=== PATIENT | female | born 1940 | race Caucasian/White ===

== ENCOUNTER → 2016-09-13 | Outpatient (CLI) | payer OTHER, BC ==
[~2016-09-13] MED LIST: ACID CONTROL20 MG PO; AMOXICILLIN 50500 M1 PO; ASPIR 8181 MG PO; ASPIRIN EC81 M1 PO; CORVITE FE TAB1 EACH PO; DIOVAN HCT 1601 EACH PO; FERROUS SULFAT140 MG PO; GLUCOPHAGE500 MG PO; IRON325 PO; JANUVIA100 MG PO; LANTUS SOL100 UNIT/1 SQ; LANTUS SUBQ; LASIX 20 MG TAB20 MG PO; LASIX 40 MG TAB40 M1 PO; LEVAQUIN 500 M500 M2 PO; LOSARTAN-HCTZ1 EAC2 PO; MECLIZINE HCL12.5 MG PO; MEDROLDOSEPACK PO; MIRALAX255 GM PO; NORCO 5-325 TA1 EACH PO; OMEPRAZOLE 20 M20 M1 PO; OMEPRAZOLE20 MG PO; PRILOSEC 20 MG20 MG PO; PROTONIX40 M1 PO; PROTONIX40 M2 PO; SLOW FE 160MG160 MG PO; SLOW RELEASE I140 MG PO; VENTOLIN HFA INH8 GM IH; VYTORIN 10-201 EACH PO; ZOCOR 10 MG TAB10 MG PO; ZOFRAN ODT4 MG PO
== END | disposition home or self-care (01) ==
LOC: GI 06:53
DX: D50.9 Iron deficiency anemia, unspecified (principal); Z86.010 Personal history of colon polyps

== ENCOUNTER 2018-01-23 08:50 | Emergency (ER) | payer OTHER, BC ==
[~2018-01-23] VITALS: Ht 160 cm; Wt 90.3 kg
[2018-01-23 09:25] LABS: ABSOLUTE NEUTROPHILS 3.5 thou/uL (1.4-8.2); HEMOGLOBIN 11.1 gm/dL (12.0-15.0); POLYS 60.3 % (36.0-66.0)
[2018-01-23 09:28] LABS: CALCIUM 10.4 mg/dL (8.5-10.1); CREATININE 1.1 mg/dL (0.6-1.0)
[2018-01-23 09:29] LABS: WBC 5.9 thou/uL (4.0-11.0)
[2018-01-23 09:30] LABS: EOSINOPHILS 4.6 % (0.0-3.0); HEMATOCRIT 30.8 % (37.0-47.0); LYMPHOCYTES 24.6 % (24.0-44.0); MCV 86.3 fL (80.0-100.0); MONOCYTES 9.5 % (1.0-8.0); PLATELET COUNT 128 thou/uL (150-400); RBC 3.56 mil/uL (4.20-5.00); RDW 13.8 % (10.5-14.5)
[2018-01-23 09:31] LABS: POTASSIUM 4.1 mmol/L (3.5-5.1)
[2018-01-23 12:39] VITALS: BP 138/72
== END 2018-01-23 11:10 | disposition home or self-care (01) ==
LOC: ER 08:50
PROVIDERS: Emergency Medicine
DX: K62.89 Other specified diseases of anus and rectum (principal); I10 Essential (primary) hypertension; E11.9 Type 2 diabetes mellitus without complications; J44.9 Chronic obstructive pulmonary disease, unspecified; G47.30 Sleep apnea, unspecified; Z90.49 Acquired absence of other specified parts of digestive tract; Z90.710 Acquired absence of both cervix and uterus; Z87.891 Personal history of nicotine dependence; Z88.1 Allergy status to other antibiotic agents

== ENCOUNTER → 2018-03-31 | Outpatient (CLI) | payer OTHER, BC ==
[~2018-03-31] VITALS: Ht 162.6 cm; Wt 91.6 kg
[~2018-03-31] MED LIST changes: +CRESTOR20 MG PO; +VENTOLIN HFA 1818 GM INH
--- NOTE | ~2018-03-31 | HPC ---
[facility] [address] [place] [address] PAIN MANAGEMENT CONSULTATION Name: XOCHITL BETH Room #: REG [facility]..#: [id number] Admission: 03/31/18 Attend Phys: Rei Paz DO Discharge: Date of : 38 Report #: [id number] THIS REPORT FOR: //name// CC: Rei Burnett MD DATE OF SERVICE: 03/31/2018 REFERRING PHYSICIAN: Jamison Burnett MD CHIEF COMPLAINT: Low back pain, bilateral lower extremity pain and paresthesias. HISTORY OF PRESENT ILLNESS: As you know, the patient is a very pleasant 77-year-old female, who reports acute onset of low back pain, bilateral lower extremity pain that began in 10/2017 after doing some yard work. She indicates pain has become intense enough that she has been unable to go about her activities of daily living. She describes the pain as aching, constant and gnawing with intermittent numbness and tingling. She states pain is exacerbated with standing, walking, improves with lying down. She is placing pain score today 9/10. The patient denies any other injury or trauma that may have led to symptom development. She is not on any blood thinners. She has been referred back to our clinic to trial epidural injection under fluoroscopic guidance. ALLERGIES: SULFA. CURRENT MEDICATIONS: Albuterol 2 puffs q.4 hours p.r.n., ferrous sulfate 325 mg per day, lovastatin 20 mg per day, furosemide 20 mg per day, losartan/hydrochlorothiazide 100/12.5 mg once a day, insulin 60 units subQ at bedtime, metformin 500 mg twice a day. SOCIAL HISTORY: The patient denies tobacco, alcohol, IV or illicit drug use. She is retired, retired years ago. She is accompanied by her son, who is present in room today. IMAGING: No new imaging available. PQRS: The patient has known osteoarthritis of the bilateral shoulders, bilateral hips, bilateral knees. She is not treated for rheumatoid arthritis. She has pain intensity today, 02/27. She is not a fall risk, has not had a fall in the last 3 months. She is not on blood thinner. She is treated for hypertension. She is not on opioids, has a low opioid addiction potential. Functional assessment pain impact tool shows [id number] interference at 46/70 for daily activities. [address] [address] PAIN MANAGEMENT CONSULTATION Name: XOCHITL BETH Room #: REG CLI [facility]#: [id number] Admission: 03/31/18 Attend Phys: Rei Paz DO Discharge: Date of : 38 Report #: [id number] PHYSICAL EXAMINATION: VITAL SIGNS: Blood pressure 140/64, pulse 68, respiratory rate 16 and unlabored. The patient is 98% on room air. Height 5 feet 4 inches tall, weight 202 pounds, BMI calculated 34.7. GENERAL: Well-developed, well-nourished, well-hydrated 77-year-old female appearing stated age, placing current pain score at 9/10. HEENT: Normocephalic, atraumatic. Pupils equal, round, reactive to light. Extraocular muscles are intact. Sclerae nonicteric without injection. NEUROLOGIC: Cranial nerves 2-12 grossly intact. Speech is fluent. The patient deemed a good historian. LUNGS: Clear; no wheeze, rhonchi or rales. CARDIOVASCULAR: Regular. No appreciable gallop, no rub. ABDOMEN: Soft, obese, normoactive bowel sounds. EXTREMITIES: Show no clubbing, no cyanosis, no edema. MUSCULOSKELETAL: Lower extremity strength appears symmetrical 5/5. Slight giveaway strength noted on the right when compared to left. Pain is generated with hip flexion, knee extension on the right. Seated straight leg raising negative. Supine straight leg raising positive. Krysten's test negative. Modified Gaenslen's positive for axial low back pain. ASSESSMENT: 1. Lumbar radiculopathy. 2. Lumbosacral spondylosis with radiculopathy. 3. Lumbar degeneration. 4. Chronic intractable pain. PLAN: 1. The patient, based on today's physical exam, history she provides and the description she uses in regards to pain as well as the distribution of symptoms would appear to be suffering from a lumbar radiculopathy given the bilateral nature of her symptoms, likely central canal stenosis. The patient indicates she has been dealing with pain since 10/2017 after an injury she sustained while doing yard work. She has been referred to our service to discuss interventional treatments. We discussed with the patient all options for suspected lumbar radiculopathy secondary to spinal stenosis. Following was discussed with the patient today. We discussed physical therapy, stretching exercise, core strengthening and a concerted effort at weight loss. We discussed medication management with addition of a neuropathic pain medication and a consistent nonsteroidal anti-inflammatory. We discussed lumbar epidural injections for which the patient was referred to our clinic, spinal cord stimulator therapy and ultimately surgical options. After reviewing risks and benefits of all proposed treatment options, the patient chose to begin with an epidural injection under fluoroscopic guidance. [address] [address] PAIN MANAGEMENT CONSULTATION Name: XOCHITL BETH Room #: REG [facility] [id number] Admission: 03/31/18 Attend Phys: Rei Paz DO Discharge: Date of : 38 Report #: [id number] The patient was advised the risks and benefits of a lumbar epidural injection. These risks include but are not necessarily limited to bleeding, bruising, infection, worsening pain, no relief of pain, also risk of temporary or permanent muscle weakness, temporary or permanent nerve damage, possible paralysis and . The patient states she understood and wished to proceed. 2. No medication changes were made at today's visit. The patient to continue current medical therapy as previously prescribed. 3. We will see the patient back in followup visit on an as-needed basis for the next in the series of lumbar epidural injections. PROCEDURE NOTE DESCRIPTION OF PROCEDURE: L5-S1 right paramedian epidural steroid injection under fluoroscopic guidance. This is the first procedure of the first series that the patient is undergoing. After obtaining written consent, the patient was taken back to the fluoroscopy suite, placed in a prone position with pillow under the abdomen to decrease lumbar lordosis. The skin overlying the lumbosacral area was then prepped and draped in aseptic fashion. The L5-S1 vertebral interspace was then identified by AP fluoroscopy. The skin and subcutaneous tissue overlying the target site of injection was anesthetized with 3 mL 1% lidocaine. A 20 gauge 3.5 inch Tuohy needle was then advanced under fluoroscopic guidance towards the epidural space using a right paramedian approach. The epidural space was identified using loss of resistance to air technique. After negative aspiration for heme or cerebrospinal fluid, a total of 1 mL of Omnipaque was injected. A lumbar epidurogram was confirmed using both AP and lateral fluoroscopy. After negative aspiration for heme or cerebrospinal fluid, 5 mL of a solution containing 2 mL 40 mg per mL, 80 mg total triamcinolone, 3 mL of lidocaine 1% was injected in increments. Contrast spread was noted posterior epidural space. The needle was then retracted approximately half way and needle tract flushed with 1 mL of 1% lidocaine. Needle was then removed. There were no apparent sensory or motor deficits in the lower extremity following the procedure. A sterile bandage was placed over the injection site. The heart rate, pulse, oximetry and blood pressure were continuously monitored after the procedure. There were no apparent complications. The patient tolerated the procedure well and was carefully escorted to the recovery room in stable condition. There were no apparent complications. After meeting discharge criteria, the patient was then discharged home. <ELECTRONICALLY SIGNED> By: Rei Paz DO 04/05/18 [id number] Rei Paz DO /nt
[2018-03-31 11:41] VITALS: BP 140/64
== END | disposition home or self-care (01) ==
LOC: PAIN 08:08
DX: M51.16 Intervertebral disc disorders with radiculopathy, lumbar region (principal); M47.27 Other spondylosis with radiculopathy, lumbosacral region; G89.29 Other chronic pain; M19.012 Primary osteoarthritis, left shoulder; M19.011 Primary osteoarthritis, right shoulder; M16.0 Bilateral primary osteoarthritis of hip; M17.0 Bilateral primary osteoarthritis of knee; I10 Essential (primary) hypertension; E11.9 Type 2 diabetes mellitus without complications; J44.9 Chronic obstructive pulmonary disease, unspecified; Z88.2 Allergy status to sulfonamides; Z79.899 Other long term (current) drug therapy; Z79.4 Long term (current) use of insulin; Z79.84 Long term (current) use of oral hypoglycemic drugs; Z90.710 Acquired absence of both cervix and uterus; Z98.890 Other specified postprocedural states; Z87.891 Personal history of nicotine dependence

== ENCOUNTER → 2018-05-17 | Outpatient (CLI) | payer OTHER, BC | LOC: MRI 11:45 | DX: M47.27 Other spondylosis with radiculopathy, lumbosacral region (principal); M43.16 Spondylolisthesis, lumbar region; M51.16 Intervertebral disc disorders with radiculopathy, lumbar region ==

== ENCOUNTER → 2018-08-23 | Outpatient (CLI) | payer MEDICARE ==
[~2018-08-23] VITALS: Ht 160 cm; Wt 93.9 kg
[2018-08-23 09:16] VITALS: BP 180/73
--- NOTE | 2018-08-23 09:24 | NUR ---
Pain Clinic Assessment: 1. History of Osteoarthritis: yes History of Rheumatoid Arthritis: Not Applicable 2. Height: 5 ft. 3 in. 160.0 cm. Weight: 207.0 lb. oz. 93.895 kg. Patient's BMI: 36.7 3. Vital Signs: BP: 180/73 Pulse: 82 Resp: 18 Temp: 02 Sat: 98 ECG Mon: 4. Pain Intensity: 9-10 5. Fall Risk: Dizziness: Y Needs help standing or walking: Y Fallen in the last 3 months: N Fall risk comments: USES CANE 6. Patient on Blood Thinner: None 7. History of Hypertension: Y 8. Opioid Therapy greater than 6 weeks: N Opiate Contract Signed: 9. Risk Assessment Tool Provided: low-0 10. Functional Assessment Tool: 11. Recreational Drug Use: Never Drug Type: Tobacco Use: Former Smoker Tobacco Type: Amount or Packs/day: How Many Years: Alcohol Use: Yes Frequency: Weekly Quant: WINE
--- NOTE | 2018-08-29 07:52 | HPC ---
[facility] [address] [place] [address] PAIN MANAGEMENT CONSULTATION Name: [facility]ITL BETH [id number] Admission: 08/23/18 ������������������ Attend Phys: Rei Paz DO Discharge: ������������������ Date of : 38 Report #: [id number] THIS REPORT FOR: //name// CC: Rei Burnett DATE OF SERVICE: 08/23/2018 CHIEF COMPLAINT: Low back pain, bilateral lower extremity pain and paresthesias. HISTORY OF PRESENT ILLNESS: As you know, the patient is a 77-year-old female who returns today in followup visit requesting to undergo next in the series of lumbar epidural injections under fluoroscopic guidance. She reports excellent benefit with previous epidural injection noting improvement of her symptoms of greater than 50-60%. She returns today in followup visit with pain level of 9-10/10 involving low back, bilateral buttock all the way down the legs to the feet. She denies new injury, new trauma or any changes in medical history since her last visit. She returns today to undergo next in the series of lumbar epidural injections under fluoroscopic guidance. This will be the second in this series. ALLERGIES: SULFA. CURRENT MEDICATIONS: Furosemide, albuterol, ferrous sulfate, lovastatin, losartan, hydrochlorothiazide, insulin and metformin. SOCIAL HISTORY: The patient denies tobacco, alcohol, IV or illicit drug use. She is retired, retired years ago. She is unaccompanied today. IMAGING: There is no new imaging available. PQRS: The patient has osteoarthritic changes of the bilateral shoulders, bilateral hips, bilateral knees and the lumbar spine. She is not treated for rheumatoid arthritis. She is placing pain intensity at 9-10/10. She is a fall risk, but has not had a fall in the last 3 months. She does use a cane for ambulation. She is not on blood thinners. She is treated for hypertension. She is not on chronic opioids. She has a low opioid addiction potential and pain impact score of 46/70, severe interference of daily activities secondary to pain. PHYSICAL EXAMINATION: VITAL SIGNS: Blood pressure 180/73, pulse is 82, respiratory rate 18 and unlabored. The patient is 98% on room air. Height 5 feet 3 inches tall, weight 207 pounds, BMI calculated 36.7. GENERAL: Well-developed, well-nourished, well-hydrated, morbidly obese [address] [address] PAIN MANAGEMENT CONSULTATION Name: XOCHITL BETH Room #: REG CLI [facility]#: [id number] Admission: 08/23/18 ������������������ Attend Phys: Rei Paz DO Discharge: ������������������ Date of : 38 Report #: [id number] 77-year-old female appearing stated age, placing current pain score 9-10/10. HEENT: Normocephalic, atraumatic. Pupils are equal, round and reactive to light. EXTREMITIES: Show no clubbing, no cyanosis and no edema. MUSCULOSKELETAL: Lower extremity strength once again symmetrical 5/5. No giveaway strength noted today. Pain is elicited with hip flexion, knee extension on the right when compared to left. Seated straight leg raising is negative. Supine straight leg raising positive on the right. Krysten's test negative. Modified Gaenslen's positive for axial low back pain. Gait appears antalgic favoring right lower extremity over left. ASSESSMENT: 1. Symptomatic lumbar radiculopathy. 2. Lumbosacral spondylosis with radiculopathy. 3. Lumbar degeneration. 4. Chronic intractable pain. PLAN: 1. The patient returns today in followup visit having noted greater than 50-60% improvement in overall pain with the previous epidural injection provided in March. She returns today in followup visit indicating her pain has begun to return to a level of intolerability and wishing to undergo next in the series of lumbar epidural injections. The patient has been advised of the risks and benefits of this procedure, states understood and wished to proceed. 2. No medication changes made at today's visit. The patient will continue current medical therapy as previously prescribed. 3. We will see the patient back in followup visit on an as needed basis for possible next in the series of lumbar epidural injections. PROCEDURE NOTE DESCRIPTION OF PROCEDURE: L5-S1 parasagittal epidural steroid injection under fluoroscopic guidance. This is the second procedure of the first series that the patient is undergoing. After obtaining written consent, the patient was taken back to the fluoroscopy suite, placed in a prone position with pillow under the abdomen to decrease lumbar lordosis. The skin overlying the lumbosacral area was then prepped and draped in aseptic fashion. The L5-S1 vertebral interspace was then identified by AP fluoroscopy. The skin and subcutaneous tissue overlying the target site of injection was anesthetized with 3 mL 1% lidocaine. A 20 gauge 3-1/2 inch Tuohy needle was then advanced under fluoroscopic guidance towards the epidural space using a parasagittal approach. The epidural space was identified using loss of resistance to air technique. After negative [address] [address] PAIN MANAGEMENT CONSULTATION Name: XOCHITL BETH Room #: REG [facility]#: [id number] Admission: 08/23/18 ������������������ Attend Phys: Rei Paz DO Discharge: ������������������ Date of : 38 Report #: [id number] aspiration for heme or cerebrospinal fluid, a total of 1 mL of Omnipaque was injected. A lumbar epidurogram was confirmed using both AP and lateral fluoroscopy. After negative aspiration for heme or cerebrospinal fluid, 5 mL of a solution containing 2 mL of 40 mg per mL, 80 mg total triamcinolone, 3 mL of lidocaine 1% was injected in increments. Contrast spread was noted posterior epidural space. The needle was then retracted approximately half way and needle tract flushed with 1 mL of 1% lidocaine. Needle was then removed. There were no apparent sensory or motor deficits in the lower extremity following the procedure. A sterile bandage was placed over the injection site. The heart rate, pulse, oximetry and blood pressure were continuously monitored after the procedure. There were no apparent complications. The patient tolerated the procedure well and was carefully escorted to the recovery room in stable condition. There were no apparent complications. After meeting discharge criteria, the patient was then discharged home. ��������������������������������������������� <ELECTRONICALLY SIGNED> ���������������������������������������� By: Rei Paz DO ��������������������������������������������� 08/29/18 0752 [id number] Rei Paz DO /nt
== END | disposition home or self-care (01) ==
LOC: PAIN 06:52
DX: M51.16 Intervertebral disc disorders with radiculopathy, lumbar region (principal); M47.26 Other spondylosis with radiculopathy, lumbar region; G89.29 Other chronic pain; M19.90 Unspecified osteoarthritis, unspecified site; I10 Essential (primary) hypertension; E66.01 Morbid (severe) obesity due to excess calories; Z88.2 Allergy status to sulfonamides; Z79.899 Other long term (current) drug therapy; Z79.4 Long term (current) use of insulin; Z79.84 Long term (current) use of oral hypoglycemic drugs; Z68.36 Body mass index [BMI] 36.0-36.9, adult; Z87.891 Personal history of nicotine dependence

== ENCOUNTER → 2018-10-25 | Outpatient (CLI) | payer MEDICARE ==
[~2018-10-25] VITALS: Ht 160 cm; Wt 91.9 kg
[2018-10-25 11:12] VITALS: BP 150/67
--- NOTE | 2018-10-25 11:28 | NUR ---
Pain Clinic Assessment: 1. History of Osteoarthritis: yes History of Rheumatoid Arthritis: Not Applicable 2. Height: 5 ft. 3 in. 160.0 cm. Weight: 202.6 lb. oz. 91.899 kg. Patient's BMI: 35.9 3. Vital Signs: BP: 150/67 Pulse: 86 Resp: 20 Temp: 02 Sat: 98 ECG Mon: 4. Pain Intensity: 5 5. Fall Risk: Dizziness: Y Needs help standing or walking: Y Fallen in the last 3 months: N Fall risk comments: USES CANE 6. Patient on Blood Thinner: None 7. History of Hypertension: Y 8. Opioid Therapy greater than 6 weeks: N Opiate Contract Signed: 9. Risk Assessment Tool Provided: low-0 10. Functional Assessment Tool: 11. Recreational Drug Use: Never Drug Type: Tobacco Use: Former Smoker Tobacco Type: Amount or Packs/day: How Many Years: Alcohol Use: No Frequency: Quant:
--- NOTE | 2018-10-31 07:41 | HPC ---
[facility] [address] PAIN MANAGEMENT CONSULTATION Name: XOCHITL BETH Room #: REG [facility] Justin.#: [id number] Admission: 10/25/18 ������������������ Attend Phys: Rei Paz DO Discharge: ������������������ Date of : 38 Report #: [id number] THIS REPORT FOR: //name// CC: Rei Burnett MD DATE OF SERVICE: 10/25/2018 REFERRING PHYSICIAN: Jamison Burnett M.D. CHIEF COMPLAINT: Low back pain, bilateral lower extremity pain and bilateral weakness. HISTORY OF PRESENT ILLNESS: As you know, the patient is a 77-year-old female who returns today in followup visit requesting to undergo next in the series of lumbar epidural injections to address lumbar radicular symptoms that are presenting in a bilateral nature secondary to the severe spinal stenosis. She has at the L4-L5 level. She is also complaining of bilateral weakness and is showing some changes in her gait today and some muscle weakness, but no baldo atrophy of the lower extremities. She indicates good efficacy with previous epidural injection alleviating most of the pain she experiences at night, but it did not have much effect on the weakness. She returns to discuss options for treatment. She denies new injury, new trauma or any changes in medical history since our last visit. ALLERGIES: SULFA. CURRENT MEDICATIONS: Furosemide, albuterol, ferrous sulfate, lovastatin, losartan, hydrochlorothiazide, insulin and metformin. SOCIAL HISTORY: The patient denies tobacco, alcohol or IV or illicit drug use. She is retired, retired years ago. She is accompanied by her daughter and son who are here in the clinic with her today. IMAGING DATA: No new imaging available. PQRS: The patient has no known osteoarthritic change of the bilateral shoulders, bilateral hips, bilateral knees and lumbar spine. She is not treated for rheumatoid arthritis. She is placing pain intensity of 5/10. She is a fall risk, but has not had a fall in last 3 months. She is now utilizing a quad cane for ambulation. She is not on blood thinners. She is treated for hypertension. She is not on any chronic opioids, has a low opioid addiction potential. She is placing pain impact score 46/70, [id number] interference of daily activities secondary to pain. [address] [address] PAIN MANAGEMENT CONSULTATION Name: XOCHITL BETH [facility] [id number] Admission: 10/25/18 ������������������ Attend Phys: Rei Paz DO Discharge: ������������������ Date of : 38 Report #: [id number] PHYSICAL EXAMINATION: VITAL SIGNS: Blood pressure 150/67, pulse 86 and respiratory rate 20 and unlabored. The patient is 98% on room air. Height 5 feet 3 inches tall, weight 202.6 pounds, BMI calculated 35.9. GENERAL: Well-developed, well-nourished, well-hydrated exogenously obese 77-year-old female appearing stated age. She is placing current pain score at 5/10. HEENT: Normocephalic and atraumatic. Pupils equal, round and reactive to light. Extraocular muscles are intact. Sclerae nonicteric without injection. NEUROLOGICAL: Cranial nerves 2 through 12 grossly intact. Speech fluent. The patient deemed a good historian. EXTREMITIES: Show no clubbing, no cyanosis and no edema. MUSCULOSKELETAL: Lower extremity strength is asymmetrical at this visit, strength on the right 5/5 and strength in the left with hip flexion, knee extension is 4/5. There is no giveaway strength noted with pain, though pain is elicited with these maneuvers. Seated straight leg raising is positive on the left. Supine straight leg raising positive. Krysten's test is negative. Modified Gaenslen's positive for axial low back pain. Ankle clonus negative. Babinski is negative. Gait is antalgic favoring what appears to be right lower extremity over the left. The patient has difficulty rising from a seated position due to weakness. ASSESSMENT: 1. Symptomatic lumbar radiculopathy. 2. Severe and progressively worsening spinal stenosis of the lumbar spine. 3. Lumbosacral spondylosis with radiculopathy. 4. Displacement of lumbar intervertebral disk with radiculopathy. 5. Lumbar degeneration. 6. Chronic intractable pain. 7. Bilateral lower extremity weakness. PLAN: 1. The patient returns today in followup visit where we have discussed at length her ongoing concerns of bilateral weakness. As you are aware, there is tight central canal stenosis at the L4-L5 level, which is the source of the patient's pain and her bilateral lower extremity weakness. It is noted today that the weakness on the left has progressed. There is no definitive atrophy of the muscular groups of the lower extremity on the left when compared to right. The patient does have some balance issues and her gait is a somewhat antalgic. We have discussed with the patient our concerns of the weakness that she is experiencing. Certainly from a pain standpoint, the epidural injections could be beneficial, but from a weakness standpoint. The patient and either needs to initiate physical therapy or look towards surgical decompression of the L4-L5 level. The patient wishes to remain conservative as possible and I will send the patient for physical therapy. 2. The patient was given a prescription for physical therapy to begin twice a [address] [place] [address] PAIN MANAGEMENT CONSULTATION Name: XOCHITL BETH Room #: REG [facility].#: [id number] Admission: 10/25/18 ������������������ Attend Phys: Rei Paz DO Discharge: ������������������ Date of : 38 Report #: [id number] week for 6 weeks. We are looking for strengthening as well as gait training and balance training to help with the weakness, the patient is experiencing in the lower extremities. If this weakness progresses, I wished the patient to stop the physical therapy, contact our clinic so that we can get her over to a surgical consultation as weakness is the typical reason why we sent the patient's her age to surgery for decompression so that she can maintain function of the lower extremities. Whether her pain is improved by this, remains to be seen if she has to undergo surgery. 3. We have consented and will perform a lumbar epidural injection on the patient today. She does receive good benefit from a pain standpoint with these injections and she has been having daily pain mainly in the evening hours after lying down. We have advised the patient of the risks and benefits of this procedure. She states she understood and wished to proceed. 4. We will see the patient back in followup visit on an as needed basis for next in the series of epidural injections. We wish her to begin the physical therapy as quickly as possible PROCEDURE NOTE DESCRIPTION OF PROCEDURE: L5-S1 parasagittal epidural steroid injection under fluoroscopic guidance. This is the third procedure of the first series that the patient is undergoing. After obtaining written consent, the patient was taken back to the fluoroscopy suite, placed in a prone position with pillow under the abdomen to decrease lumbar lordosis. The skin overlying the lumbosacral area was then prepped and draped in aseptic fashion. The L5-S1 vertebral interspace was then identified by AP fluoroscopy. The skin and subcutaneous tissue overlying the target site of injection was anesthetized with 3 mL 1% lidocaine. A 20-gauge 3-1/2 inch Tuohy needle was then advanced under fluoroscopic guidance towards the epidural space using a right parasagittal approach. The epidural space was identified using loss of resistance to air technique. After negative aspiration for heme or cerebrospinal fluid, a total of 1 mL of Omnipaque was injected. A lumbar epidurogram was confirmed using both AP and lateral fluoroscopy. After negative aspiration for heme or cerebrospinal fluid, 5 mL of a solution containing 2 mL 40 mg per mL, 80 mg total triamcinolone, 3 mL of lidocaine 1% was injected in increments. Contrast spread was noted posterior epidural space. The needle was then retracted approximately half way and needle tract flushed with 1 mL of 1% lidocaine. Needle was then removed. There were no apparent sensory or motor deficits in the lower extremity following the procedure. A sterile bandage was placed over the injection site. The heart rate, pulse, oximetry and blood pressure were continuously monitored after the procedure. There were no apparent complications. The patient [address] [address] PAIN MANAGEMENT CONSULTATION Name: XOCHITL BETH Room #: REG CLMoreno Jiang#: [id number] Admission: 10/25/18 ������������������ Attend Phys: Rei Paz DO Discharge: ������������������ Date of : 38 Report #: [id number] the procedure well and was carefully escorted to the recovery room in stable condition. There were no apparent complications. After meeting discharge criteria, the patient was then discharged home. ��������������������������������������������� <ELECTRONICALLY SIGNED> ���������������������������������������� By: Rei Paz DO ��������������������������������������������� 10/31/18 0741 1516 0532 Rei Paz DO /brittnee
== END | disposition home or self-care (01) ==
LOC: PAIN 06:50
DX: M51.16 Intervertebral disc disorders with radiculopathy, lumbar region (principal); M48.061 Spinal stenosis, lumbar region without neurogenic claudication; M47.27 Other spondylosis with radiculopathy, lumbosacral region; G89.29 Other chronic pain; I10 Essential (primary) hypertension; E66.9 Obesity, unspecified; Z88.2 Allergy status to sulfonamides; Z79.899 Other long term (current) drug therapy; Z68.35 Body mass index [BMI] 35.0-35.9, adult; Z87.891 Personal history of nicotine dependence

== ENCOUNTER 2019-02-22 10:10 | Emergency (ER) | payer OTHER, MEDICARE ==
[~2019-02-22] VITALS: Ht 160 cm; Wt 90.7 kg
[2019-02-22 11:36] LABS: ABSOLUTE NEUTROPHILS 3.4 thou/uL (1.4-8.2); BASOPHILS 0.7 % (0.0-2.0); EOSINOPHILS 3.6 % (0.0-3.0); HEMATOCRIT 26.4 % (37.0-47.0); HEMOGLOBIN 9.2 gm/dL (12.0-15.0); LYMPHOCYTES 18.7 % (24.0-44.0); MCH 30.8 pg (26.0-34.0); MCHC 34.9 g/dL (28.0-37.0); MCV 88.3 fL (80.0-100.0); MONOCYTES 8.9 % (1.0-8.0); PLATELET COUNT 110 thou/uL (150-400); POLYS 68.1 % (36.0-66.0); RBC 2.99 mil/uL (4.20-5.00); RDW 14.3 % (10.5-14.5)
[2019-02-22 11:38] LABS: ANION GAP 11 mmol/L (7-16); BUN 30 mg/dL (7-18); CHLORIDE 106 mmol/L (98-107); CO2 21 mmol/L (21-32); CREATININE 1.5 mg/dL (0.6-1.0); GLUCOSE 112 mg/dL (74-106); SODIUM 138 mmol/L (136-145)
[2019-02-22 11:48] LABS: SGOT 22 U/L (15-37); SGPT 10 U/L (30-65); TOTAL BILIRUBIN 0.2 mg/dL (<0.1-1.0); TOTAL PROTEIN 7.9 g/dL (6.4-8.2); TROPONIN-I <0.06 ng/mL (<0.06)
[2019-02-22 13:43] VITALS: BP 122/62
--- NOTE | 2019-02-23 14:33 | EKG ---
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
== END 2019-02-22 13:43 | disposition home or self-care (01) ==
LOC: ER 10:10
PROVIDERS: Emergency Medicine
DX: G43.909 Migraine, unspecified, not intractable, without status migrainosus (principal); N17.9 Acute kidney failure, unspecified; M48.00 Spinal stenosis, site unspecified; J44.9 Chronic obstructive pulmonary disease, unspecified; Z87.891 Personal history of nicotine dependence; Z88.2 Allergy status to sulfonamides; Z90.710 Acquired absence of both cervix and uterus; Z90.12 Acquired absence of left breast and nipple

== ENCOUNTER → 2019-10-23 | Outpatient (CLI) | payer MEDICARE ==
[~2019-10-23] VITALS: Ht 160 cm; Wt 90.7 kg
[~2019-10-23] MED LIST changes: +TYLENOL 8 HOUR650 MG PO
--- NOTE | ~2019-10-23 | HPC ---
[facility] [place] [address] [place] [address] PAIN MANAGEMENT CONSULTATION Name: XOCHITL BETH Room #: REG JOSH AndersonLilliana#: [id number] Admission: 10/23/19 Attend Phys: Rei Paz DO Discharge: Date of : 38 Report #: [id number] THIS REPORT FOR: cc: Jamison Burnett MD, Rene P. MD Johnson, James E. DO ~ CC: Rei Burnett MD DATE OF SERVICE: 10/23/2019 REFERRING PHYSICIAN: Jamison Burnett MD CHIEF COMPLAINT: Left neck pain and left head pain. HISTORY OF PRESENT ILLNESS: As you know, the patient is a very pleasant 78-year-old female who returns today in followup visit with left neck pain and left head pain. The patient states pain begins in the upper cervical area, radiates across the distribution of the lesser occipital nerve on the left. The pain began spontaneously. No inciting injury or trauma. She believes she may have exacerbated her symptoms while doing sewing over the past month where she is making masks for friends and family for COVID-19 pandemic protection. The patient has had symptoms similar to this in the past where she underwent C2-C3 intra-articular facet injections with good efficacy. The patient was recently seen in the Emergency Department, diagnosed with occipital neuralgia and underwent an occipital nerve block at the bedside. This was in February 2019. The patient had resolution of symptoms that lasted for approximately 2 months. Her symptoms have recurred with this increase in sewing per her report. She returns today in followup visit to undergo treatment for C2-C3 facet arthropathy and subsequent third occipital neuralgia. ALLERGIES: SULFA. CURRENT MEDICATIONS: Metformin, Lantus, losartan/hydrochlorothiazide, rosuvastatin, ferrous sulfate, albuterol, furosemide and acetaminophen. SOCIAL HISTORY: The patient denies tobacco, alcohol, IV or illicit drug use. She is retired, retired years ago. She is accompanied by her daughter and grandson who were present in room. IMAGING: No new imaging available. PQRS: The patient has known arthritic changes of the cervical spine, bilateral shoulders, bilateral hips, bilateral knees and lumbar spine. She is not treated for rheumatoid arthritis. She is placing pain intensity at 10/10. She is not a [place] [id number] PAIN MANAGEMENT CONSULTATION Name: XOCHITL BETH Room #: REG [facility]..#: [id number] Admission: 10/23/19 Attend Phys: Rei Paz DO Discharge: Date of : 38 Report #: [id number] fall risk, has not had a fall in last 3 months and does use a cane for ambulation. She is not on blood thinners, but is treated for hypertension. She is not on chronic opioids and has a low opioid addiction potential. She is reporting a pain impact score of 46/70, severe interference of daily activities secondary to pain. PHYSICAL EXAMINATION: VITAL SIGNS: Blood pressure 147/60, pulse is 73, respiratory rate 16 and unlabored. The patient is 100% on room air. Height 5 feet 3 inches tall, weight 200 pounds, BMI calculated 35.4. GENERAL: Well-developed, well-nourished, well-hydrated exogenously obese 78-year-old female appearing stated age, placing current pain score 10/10. HEENT: Normocephalic, atraumatic. Pupils equal, round, reactive to light. Speech is fluent. The patient deemed a fair historian. EXTREMITIES: Show no clubbing, no cyanosis, and no appreciable edema. MUSCULOSKELETAL: There is palpatory tenderness to the paraspinal musculature of the left upper cervical area directly overlying the C2-C3 facet joint. Deep palpation in area causes a significant intensification of pain. There is noted allodynia along the lesser occipital nerve distribution on the left, negative right. There does not appear to be hyperalgesia. There is no skin color changes over the cervical or lesser occipital area concerning of a possible herpetic neuralgia. Thus it appears she is suffering from third occipital neuralgia based on examination. ASSESSMENT: 1. Third occipital neuralgia. 2. Cervicogenic headache. 3. Cervical spondylosis without radiculopathy. 4. Chronic intractable pain. PLAN: 1. The patient has returned today in followup visit with what appears to be third occipital nerve involvement on the left side. Deep palpation over the C2-C3 facet joint consistent with the third occipital nerve causes the patient's typical radiating pain pattern. The patient has been involved in activities of sewing that have left her in a slightly forward flexed position exacerbating the area of discomfort. She has returned today in followup visit to undergo injection in the area in hopes of improving pain. The patient denies any specific injury or trauma to the area that may have caused symptom development. 2. The patient has been advised risks and benefits of a C2-C3 left intra-articular facet injection. These risks include but are not necessarily limited to bleeding, bruising, infection, worsening pain, no relief of pain, also risk of temporary or permanent muscle weakness, temporary or permanent nerve damage, possible paralysis and . The patient states she understood and wished to proceed. 3. The patient and I did discuss the risks based on BELEN guidelines of a [address] [address] PAIN MANAGEMENT CONSULTATION Name: XOCHITL BETH Room #: REG [facility]#: [id number] Admission: 10/23/19 Attend Phys: Rei Paz DO Discharge: Date of : 38 Report #: [id number] steroid exposure during COVID pandemic. These risks include increased risk of possible contraction of the COVID virus due to reduction in immune response secondary to steroids. There is also a potential if the patient is experiencing any type of COVID like symptoms that these may be exacerbated. The patient states she understands the risks in regards to COVID-19 and wishes to proceed. 4. No medication changes made at today's visit. The patient will continue current medical therapy as prior prescribed. 5. We will see the patient back in followup visit for a possible next in the series of injections. PROCEDURE NOTE DESCRIPTION OF PROCEDURE: Left C2-C3 intra-articular facet injection under fluoroscopic guidance. After obtaining written consent, the patient was taken back to fluoroscopy suite, placed in a prone position. This was done with separate pillows under chest and forehead to decrease cervical lordosis. Skin overlying cervical area was then prepped and draped in aseptic fashion. The image intensifier was then brought into position over the cervical spine and the C2-C3 facet joint on the left was identified. The area overlying the target site of injection was prepped and draped in aseptic fashion and anesthetized with 2 mL of 1% lidocaine. A 22-gauge 3-1/2 inch spinal needle was advanced under fluoroscopic guidance to the C2-C3 facet joint on the left side. Needle was advanced until reaching the facet joint. AP and lateral imaging was obtained to confirm position of the needle. The needle was then advanced into the facet joint, but not into the articular cartilage. After negative aspiration for heme, 2 mL of a solution containing 1 mL 40 mg per mL, 40 mg total triamcinolone along with 1 mL bupivacaine 0.5% injected slowly. Needle retracted intermediate, flushed with 1 mL of 1% lidocaine and then removed. Sterile bandage placed over injection site. There were no new motor deficits present in the upper extremities following procedure. The patient tolerated the procedure well, carefully escorted to recovery room in stable condition. After meeting our discharge criteria, the patient was discharged home with pain level of 0/10. By: [id number] Rei Paz DO /nt
[2019-10-23 10:21] VITALS: BP 147/60
--- NOTE | 2019-10-23 10:36 | NUR ---
Pain Clinic Assessment: 1. History of Osteoarthritis: NECK? History of Rheumatoid Arthritis: DENIES 2. Height: 5 ft. 3 in. 160.0 cm. Weight: 200.0 lb. oz. 90.720 kg. Patient's BMI: 35.4 3. Vital Signs: BP: 147/60 Pulse: 73 Resp: 16 Temp: 02 Sat: 100 ECG Mon: 4. Pain Intensity: 10 5. Fall Risk: Dizziness: Y Needs help standing or walking: N Fallen in the last 3 months: N Fall risk comments: USES CANE 6. Patient on Blood Thinner: None 7. History of Hypertension: Y 8. Opioid Therapy greater than 6 weeks: N Opiate Contract Signed: 9. Risk Assessment Tool Provided: low-0 10. Functional Assessment Tool: 11. Recreational Drug Use: Never Drug Type: Tobacco Use: Former Smoker Tobacco Type: Amount or Packs/day: How Many Years: Alcohol Use: No Frequency: Quant:
== END | disposition home or self-care (01) ==
LOC: PAIN 06:49
DX: M47.812 Spondylosis without myelopathy or radiculopathy, cervical region (principal); G89.29 Other chronic pain; M54.81 Occipital neuralgia; G44.89 Other headache syndrome; I10 Essential (primary) hypertension; M19.90 Unspecified osteoarthritis, unspecified site; Z98.890 Other specified postprocedural states; Z79.899 Other long term (current) drug therapy; Z88.2 Allergy status to sulfonamides

== ENCOUNTER → 2019-12-10 | Outpatient (CLI) | payer BC | LOC: SJCVCIMAG 09-06 13:10 | PROVIDERS: ATTEND Internal Medicine Cardiovascular Disease | DX: I25.10 Atherosclerotic heart disease of native coronary artery without angina pectoris (principal); I08.1 Rheumatic disorders of both mitral and tricuspid valves; E11.9 Type 2 diabetes mellitus without complications ==

== ENCOUNTER → 2020-07-25 | Outpatient (CLI) | payer BC | LOC: SJCVC 11:16 | PROVIDERS: ATTEND Internal Medicine Cardiovascular Disease | DX: R94.31 Abnormal electrocardiogram [ECG] [EKG] (principal); I45.2 Bifascicular block; I25.10 Atherosclerotic heart disease of native coronary artery without angina pectoris; I10 Essential (primary) hypertension; E78.00 Pure hypercholesterolemia, unspecified; E11.9 Type 2 diabetes mellitus without complications; G47.30 Sleep apnea, unspecified; R60.9 Edema, unspecified; D64.9 Anemia, unspecified; E78.5 Hyperlipidemia, unspecified; D50.9 Iron deficiency anemia, unspecified; E66.9 Obesity, unspecified; E66.01 Morbid (severe) obesity due to excess calories; Z79.891 Long term (current) use of opiate analgesic; Z79.899 Other long term (current) drug therapy; Z88.2 Allergy status to sulfonamides; Z88.6 Allergy status to analgesic agent; Z87.891 Personal history of nicotine dependence ==

== ENCOUNTER → 2021-04-28 | Outpatient (CLI) | payer BC | LOC: SJCVCIMAG 10:31 | PROVIDERS: ATTEND Internal Medicine Cardiovascular Disease | DX: I08.1 Rheumatic disorders of both mitral and tricuspid valves (principal); R94.31 Abnormal electrocardiogram [ECG] [EKG]; E11.9 Type 2 diabetes mellitus without complications; G47.30 Sleep apnea, unspecified; I25.10 Atherosclerotic heart disease of native coronary artery without angina pectoris; I10 Essential (primary) hypertension; E78.5 Hyperlipidemia, unspecified; Z79.4 Long term (current) use of insulin; Z79.899 Other long term (current) drug therapy; Z87.891 Personal history of nicotine dependence; Z88.2 Allergy status to sulfonamides; Z88.8 Allergy status to other drugs, medicaments and biological substances ==

== ENCOUNTER 2021-05-04 13:01 | Inpatient (IN) | payer BC ==
[~2021-05-04] VITALS: Ht 157.5 cm; Wt 100.1 kg
--- NOTE | ~2021-05-04 | HC ---
[facility] [place] [address] CONSULTATION Name: XOCHITL BETH Room #: 205-P ADM IN M.R.#: [id number] Admission: 05/04/21 Attend Phys: Ankita Hargrove Analisa Discharge: Date of : 38 Report #: [id number] THIS REPORT FOR: cc: Jamison Burnett MD, Rene P. MD Smithson, David G. MD ~ DATE OF SERVICE: 05/06/2021 HISTORY OF PRESENT ILLNESS: The patient is an 80-year-old white female admitted with increased shortness of breath, orthopnea, noted to have cardiomyopathy and warrants a cardiac catheterization. This is currently on hold as she has had acute renal failure superimposed on chronic kidney disease. Her last creatinine is 2.3, down from a high of 3.7. She is being monitored regarding hypertension, dyspnea on exertion, increased heart rate with activity. Consideration is to probably do the cardiac catheterization as an outpatient. We are seeing her in rehabilitation medicine consultation. She has a history of coronary artery disease, gastritis, bilateral rotator cuff repair, bilateral knee degenerative arthritis, obstructive sleep apnea, atrial fibrillation, diabetes mellitus type 2 with peripheral neuropathy, pulmonary hypertension. MEDICATIONS: Please see the full medication listing. ALLERGIES: SULFA. SOCIAL HISTORY: Lives in a house alone, premorbid, utilized a cane at times. She notes before she got sick, she was caring for her 4000 square foot house. She is the caregiver for her son who has Down syndrome. There are 2 daughters, one works in the pain clinic and the other runs her own business, but is currently caring for the patient's son who has Down's. This is a multilevel house. REVIEW OF SYSTEMS: Did not offer any current complaints of chest pain, shortness of breath or abdominal discomfort. PHYSICAL EXAMINATION: GENERAL: She is an 80-year-old white female in no obvious distress. VITAL SIGNS: Temperature 36.7, pulse 120, respirations 17, blood pressure 124/79. NEUROLOGIC: She is alert, hard of hearing, oriented, follows basic commands without difficulty. Facies are symmetric. EXTREMITIES: Functional range of motion of both upper and lower extremities. Strength is a grade 4/5. DTRs are trace to 1. She is getting up in physical therapy, is modified independent in the room with the IV pole. Modified independent with transfers. She is able to ambulate up to 40 feet. Heart rate is 120. She is allowed up ad natalie in room. [facility] [address] [place] [address] CONSULTATION Name: XOCHITL BETH Room #: 205-P ADM IN M.R.#: [id number] Admission: 05/04/21 Attend Phys: Ankita Flores Discharge: Date of : 38 Report #: [id number] ASSESSMENT: An 80-year-old white female with the following problem list: 1. Anginal equivalent. 2. Congestive heart failure. 3. Rule out coronary artery disease. We will need a cardiac catheterization when her renal function improves. 4. Acute on chronic renal insufficiency with nephrology involved. 5. Hypertension. 6. Diabetes mellitus type 2 with peripheral neuropathy. 7. Obstructive sleep apnea. 8. Iron deficiency anemia. 9. History of gastrointestinal bleed. 10. Pulmonary hypertension. PLAN: The patient is already modified independent, up ad natalie in the room with the IV pole. Her main issue is endurance with elevated heart rate and the monitoring of her renal function. I do not see that she would warrant an acute inpatient to [address] [place] [address] rehabilitation stay with her current independence with basic mobility. Therapy is to continue to work with her on increasing endurance while she is here in the hospital as well as occupational therapy working on energy conservation. Would anticipate again I do not see that she meets criteria for an acute inpatient rehabilitation stay, as she is too high level from a functional perspective. Discussion was held with the patient and with her daughter who works in the pain clinic. By: [id number] David Preciado MD /nt
[~2021-05-04 13:01] MED LIST changes: -METOPROLOL SUCC50 MG PO
[2021-05-04 13:14] VITALS: BP 114/73
[2021-05-04 13:50] LABS: ABSOLUTE NEUTROPHILS 5.8 thou/uL (1.4-8.2); BASOPHILS 0.8 % (0.0-2.0); EOSINOPHILS 2.4 % (0.0-3.0); HEMATOCRIT 32.2 % (37.0-47.0); HEMOGLOBIN 10.8 gm/dL (12.0-15.0); LYMPHOCYTES 18.4 % (24.0-44.0); MCH 29.9 pg (26.0-34.0); MCHC 33.6 g/dL (28.0-37.0); MONOCYTES 8.6 % (1.0-8.0); PLATELET COUNT 131 thou/uL (150-400); POLYS 69.8 % (36.0-66.0); RBC 3.62 mil/uL (4.20-5.00); RDW 14.6 % (10.5-14.5); WBC 8.3 thou/uL (4.0-11.0)
[2021-05-04 14:00] LABS: CALCIUM 8.8 mg/dL (8.5-10.1); CREATININE 2.5 mg/dL (0.6-1.0)
[2021-05-04 14:04] LABS: APTT 24.6 Seconds (24.5-32.8); INR 1.09; PROTIME 11.8 Seconds (10.5-12.1)
[2021-05-04 14:10] LABS: ALBUMIN 3.7 g/dL (3.4-5.0); TOTAL BILIRUBIN 0.6 mg/dL (0.2-1.0)
[2021-05-04 14:21] LABS: URINE BILIRUBIN NEGATIVE (Negative); URINE BLOOD TRACE (Negative); URINE CLARITY CLEAR; URINE COLOR YELLOW; URINE GLUCOSE-RANDOM* NEGATIVE (Negative); URINE KETONES NEGATIVE (Negative); URINE LEUKOCYTES-REFLEX 2+ (Negative); URINE NITRITE-REFLEX NEGATIVE (Negative); URINE PROTEIN (DIPSTICK) NEGATIVE (Negative); URINE SPECIFIC GRAVITY 1.015 (1.005-1.035); URINE UROBILINOGEN 0.2 E.U./dl (0.2-1.0)
[2021-05-04 14:31] LABS: BACTERIA-REFLEX 1-9 Few /HPF (None Seen); CASTS None Seen /LPF (None Seen); SQUAMOUS 4-10 Moderate /LPF (0-3); URINE RBC None Seen /HPF (NONE SEEN)
[2021-05-04 14:32] LABS: CRYSTALS None Seen /LPF (None Seen)
[2021-05-04 15:02] VITALS: BP 107/83
[2021-05-04 16:01] VITALS: BP 113/72
[2021-05-04] MEDS ORDERED: TOPROL XL100 MG PO (16:29)
--- NOTE | 2021-05-04 18:00 | NUR ---
PATIENT ARRIVED FROM THE UNIT FROM THE ED. PLAN FOR A HEART CATH. ASSESMENTS COMPLETED, DAUGHTER AT BEDSIDE. ANSWERED ALL QUESTIONS FROM BOTH. PATIENT COMFORTABLE IN THE RECLINER STATING IT HELPS HER BACK PAIN MORE THAN THE BED.
[2021-05-04 19:00] VITALS: BP 111/72
[2021-05-04 19:38] VITALS: BP 111/72
[2021-05-04 23:55] VITALS: BP 103/58
[2021-05-05 03:48] VITALS: BP 98/61
[2021-05-05 05:09] LABS: HEMATOCRIT 28.5 % (37.0-47.0); HEMOGLOBIN 9.8 gm/dL (12.0-15.0); MCH 30.3 pg (26.0-34.0); MCHC 34.4 g/dL (28.0-37.0); MCV 88.1 fL (80.0-100.0); RBC 3.24 mil/uL (4.20-5.00); RDW 14.9 % (10.5-14.5); WBC 7.1 thou/uL (4.0-11.0)
[2021-05-05 05:16] LABS: CALCIUM 8.4 mg/dL (8.5-10.1); CREATININE 2.3 mg/dL (0.6-1.0); POTASSIUM 3.5 mmol/L (3.5-5.1)
[2021-05-05 05:24] LABS: ALBUMIN 3.4 g/dL (3.4-5.0); MAGNESIUM 2.2 mg/dL (1.8-2.4); PHOSPHORUS 4.3 mg/dL (2.5-4.9)
--- NOTE | 2021-05-05 07:59 | EKG ---
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 : 1940 Requested By: Chang Mcarthur Order Number: [id number] MD: Brody Smith Measurements Intervals [place] Rate: 118 P: VT: QRS: -47 QRSD: 137 T: 112 QT: 321 QTc: 450 Interpretive Statements Sinus tachycardia RBBB and LAFB Nonspecific T abnormalities, lateral leads Compared to ECG 05/01/2021 12:38:00 T-wave abnormality now present Electronically Signed On 05-05-2021 7:59:21 NETWORK ANNOUNCER by Brody Smith [email or web address] <ELECTRONICALLY SIGNED> By: Brody Smith MD, [facility] 05/05/21 0759 1347 [id number] Brody Smith MD, FACC /EPI
--- NOTE | 2021-05-05 08:10 | NUR ---
PT IS A&OX4 AND IS ABLE TO COMMUNICATE WANTS AND NEEDS TO STAFF APPROPRIATELY. SHE IS VERY HARD OF HEARING, AND STATES THAT HER HEARING AID BROKE; IT IS IN HER POSESSION AT BEDSIDE. PT REPORTED TO THIS NURSE THAT SHE HAS SLEEP APNEA AND USUALLY WEARS A CPAP AT HOME. THIS NURSE NOTIFIED RT FOR NEED OF CPAP. RT VISITED WITH PT, AND OFFERED TO PLACE BIPAP ON PT; PT DECLINED, STATED SHE WOULD PREFER TO WEAR O2 PER NASAL CANULA INSTEAD. AROUND MIDNIGHT, PT REPORTED INCREASED SHORTNESS OF BREATH AND PRESENTED WITH WHEEZING. HER O2 SAT AT THE TIME WAS 100% ON 1.5L/NC. CASING PULLER NOTIFIED OF INCREASED SOA AND WHEEZING, AND GAVE NEW ORDER FOR DUONEBS PRN. RT NOTIFIED AND ADMINISTERED BREATHING TREATMENT X1; WHEEZING IMPROVED MARGINALLY, BUT PT'S SOA IMPROVED AND SHE WAS ABLE TO GET BACK TO SLEEP QUICKLY. REPORT GIVEN TO ONCOMING NURSE.
[2021-05-05 09:32] VITALS: BP 109/62
--- NOTE | 2021-05-05 12:07 | NUR ---
Met with patient who admits with tachycardia. Patient reports she lives at home with down syndrome son. She reports he cannot be alone so at this time staying with one of 2 dtrs. Patient reports steps in home 7-8 to her upstairs to bedroom. 7-8 steps to downstairs sowing room. 4-5 steps from garage. Patient has a walker but uses a cane mostly. She cont to drive. PCP Dr Burnett. Gave her information on other phys on campus since Dr Burnett retiring. Patient reports the phys stated may need rehab prior to home. Patient agreeable to home health care if ordered. She has no preference of an agency. Patient reports no hx of HH in past or rehab. [facility] following.
[2021-05-05 15:56] VITALS: BP 109/93
--- NOTE | 2021-05-05 18:16 | NUR ---
PATIENT ASSESMENTS CHARTED. PATIENT KNOWS PLAN OF CARE AND IS COMFORTABLE IN HER ROOM.
[2021-05-05 19:00] VITALS: BP 109/67
[2021-05-06 04:41] VITALS: BP 106/63
[2021-05-06 05:23] LABS: HEMATOCRIT 27.6 % (37.0-47.0); HEMOGLOBIN 9.4 gm/dL (12.0-15.0); MCH 30.2 pg (26.0-34.0); MCV 88.8 fL (80.0-100.0); RBC 3.11 mil/uL (4.20-5.00); RDW 14.6 % (10.5-14.5); WBC 5.8 thou/uL (4.0-11.0)
[2021-05-06 05:52] LABS: ALBUMIN 3.3 g/dL (3.4-5.0); CALCIUM 8.4 mg/dL (8.5-10.1); CREATININE 2.3 mg/dL (0.6-1.0); POTASSIUM 3.7 mmol/L (3.5-5.1)
--- NOTE | 2021-05-06 06:34 | NUR ---
PATIENTS CARES ASSUMED AT [facility]. PATIENT ASSESSED AND MEDS WERE PASSED. PATIENT HAD A RESTFUL NIGHT. NO CALLS OR CONCERNDS. ROUNDS WERE DONE THE BED IS IN A LOW AND LOCKED POSITION.
[2021-05-06 07:50] VITALS: BP 146/85
[2021-05-06 07:51] VITALS: BP 113/75
[2021-05-06 11:23] VITALS: BP 124/79
[2021-05-06 15:27] VITALS: BP 118/71
[2021-05-06 17:09] LABS: URINE BILIRUBIN NEGATIVE (Negative); URINE BLOOD NEGATIVE (Negative); URINE CLARITY CLEAR; URINE COLOR YELLOW; URINE GLUCOSE-RANDOM* NEGATIVE (Negative); URINE KETONES NEGATIVE (Negative); URINE LEUKOCYTES NEGATIVE (Negative); URINE NITRITE NEGATIVE (Negative); URINE PROTEIN (DIPSTICK) NEGATIVE (Negative); URINE UROBILINOGEN 0.2 E.U./dl (0.2-1.0)
[2021-05-06 20:25] VITALS: BP 117/63
[2021-05-07 04:38] LABS: ALBUMIN 3.2 g/dL (3.4-5.0); CALCIUM 8.4 mg/dL (8.5-10.1); CREATININE 2.2 mg/dL (0.6-1.0); PHOSPHORUS 3.9 mg/dL (2.5-4.9); POTASSIUM 3.9 mmol/L (3.5-5.1)
[2021-05-07 04:45] VITALS: BP 123/82
[2021-05-07 07:35] VITALS: BP 137/93
[2021-05-07] MEDS ORDERED: METOPROLOL SUCC50 MG PO (11:08)
[2021-05-07] MEDS ORDERED: DEMADEX20 MG PO (11:09)
[2021-05-07 11:22] VITALS: BP 124/77
[2021-05-07 15:10] VITALS: BP 113/68
--- NOTE | 2021-05-07 15:24 | NUR ---
spoke with patient regarding acute rehab. Patient does not believe she needs acute rehab. Patient reports Dr Preciado told her she did not qualify. Sp with dtr who reports she wants her mother to transition to acute rehab and beneficial prior to home. Updated patient of what her dtr thoughts. Patient to sp with dtr. 5N in process of auth
--- NOTE | 2021-05-07 16:41 | NUR ---
TOOK OVER CARE FOR PATIENT AT 0700. BEDSIDE SHIFT REPORT RECEIVED. PATIENT SITTING COMFORTABLY IN BED. PATIENT ON ROOM AIR; DENIES SHORTNESS OF AIR BUT BECOMES SOA WITH EXERTION. EDUCATED PATIENT ON IMPORTANCE OF USING CALL LIGHT BEFORE GETTING UP; PATIENT AxOX4 BUT FORGETFUL AT TIME. PATIENT DENIES ANY NEEDS AT THIS TIME. SPOKE WITH CASE MANAGMENT REGARDING PATIENTS CASE. WILL CONTINUE TO MONITOR. FALL PRECAUTIONS IN PLACE.
[2021-05-07 20:46] VITALS: BP 121/82
[2021-05-08 05:19] VITALS: BP 91/57
--- NOTE | 2021-05-08 05:19 | NUR ---
PT CALLS WITH NEEDS. UP WITH SBA TO THE BATHROOM. URINATING OKAY. SOME PEDAL EDEMA NOTED.MILD SOA WITH EXERTION-SOME CONGESTED COUGH WITH THICK SPUTUM PRODUCTION. TOLERATES CPAP AT NIGHT.DENIES PAIN.
[2021-05-08 07:00] VITALS: BP 119/77
[2021-05-08 09:39] LABS: CALCIUM 8.8 mg/dL (8.5-10.1); CREATININE 2.2 mg/dL (0.6-1.0)
[2021-05-08 09:44] LABS: ALBUMIN 3.4 g/dL (3.4-5.0)
[2021-05-08 11:15] VITALS: BP 125/67
[2021-05-08 13:46] VITALS: BP 125/67
[2021-05-08 14:40] VITALS: BP 125/67
[2021-05-08 15:17] VITALS: BP 125/67
--- NOTE | 2021-05-08 16:43 | NUR ---
Patient doing well and no need for acute rehab. Plan home with care. Patient with no preference for HH agency. Faxed referral to [facility]. They rec orders for start of care. Notified dtr.
--- NOTE | 2021-05-08 17:04 | NUR ---
assessment as charted - MEDS PER FRANKLIN COLEMAN DIET AND FLUIDS. NO CO'S OF PAIN OR NASUEA. UP IN ROOM WITH STBY ASSIST - STEADY ON FEET. ACCUCHECKS CHARTED - PT HOME THIS AFTERNOON - INSTRUCTION RE HOME MEDS- CARE AND FOLLOW GIVEN TO PATIENT - STATED UNDERSTANDING ON INSTRUCTION GIVEN. PT LEFT NIT VIA WHEELCHAIR - HOME VIA PVT VEHICLE - NO CO'S AT TIME OF D/C. MONITOR AND IV REMOVED PRIOR TO D/C.
== END 2021-05-08 16:53 | disposition home or self-care (01) | DRG 292 ==
LOC: ER 13:01 → EROBS 14:37 → 2N 14:37
PROVIDERS: Emergency Medicine; Hospitalist; Nurse Practitioner; ADMIT Hospitalist; ATTEND Hospitalist
DX: I13.0 Hypertensive heart and chronic kidney disease with heart failure and stage 1 through stage 4 chronic kidney disease, or unspecified chronic kidney disease (principal); N39.0 Urinary tract infection, site not specified; N17.9 Acute kidney failure, unspecified; J44.9 Chronic obstructive pulmonary disease, unspecified; I25.10 Atherosclerotic heart disease of native coronary artery without angina pectoris; E78.00 Pure hypercholesterolemia, unspecified; I48.91 Unspecified atrial fibrillation; I50.9 Heart failure, unspecified; N18.30 Chronic kidney disease, stage 3 unspecified; D50.9 Iron deficiency anemia, unspecified; M81.0 Age-related osteoporosis without current pathological fracture; I27.20 Pulmonary hypertension, unspecified; Z20.822 Contact with and (suspected) exposure to COVID-19; E11.22 Type 2 diabetes mellitus with diabetic chronic kidney disease; G47.33 Obstructive sleep apnea (adult) (pediatric); E78.5 Hyperlipidemia, unspecified; R53.81 Other malaise; I25.5 Ischemic cardiomyopathy; Z90.710 Acquired absence of both cervix and uterus; Z86.010 Personal history of colon polyps; Z88.2 Allergy status to sulfonamides; Z87.891 Personal history of nicotine dependence; Z83.3 Family history of diabetes mellitus; Z82.49 Family history of ischemic heart disease and other diseases of the circulatory system; Z83.6 Family history of other diseases of the respiratory system
CPT/HCPCS: 10081; 10797

== ENCOUNTER → 2021-05-04 | Outpatient (CLI) | payer BC ==
[~2021-05-04] MED LIST changes: +DEMADEX20 MG PO; +KLOR-CON M2020 MEQ PO; +LIPITOR 20 MG T20 M1 PO; +METOPROLOL SUCC50 MG PO; +TOPROL XL100 MG PO; +TOPROL XL50 MG PO
== END ==
LOC: SJCVC 12:29
PROVIDERS: ATTEND Internal Medicine Cardiovascular Disease
DX: R94.31 Abnormal electrocardiogram [ECG] [EKG] (principal); I45.2 Bifascicular block; R00.0 Tachycardia, unspecified; I25.10 Atherosclerotic heart disease of native coronary artery without angina pectoris; R79.89 Other specified abnormal findings of blood chemistry; E78.00 Pure hypercholesterolemia, unspecified; I11.0 Hypertensive heart disease with heart failure; I50.42 Chronic combined systolic (congestive) and diastolic (congestive) heart failure; I25.119 Atherosclerotic heart disease of native coronary artery with unspecified angina pectoris; E11.9 Type 2 diabetes mellitus without complications; G47.33 Obstructive sleep apnea (adult) (pediatric); R60.9 Edema, unspecified; D50.9 Iron deficiency anemia, unspecified; R00.2 Palpitations; I27.20 Pulmonary hypertension, unspecified; I42.9 Cardiomyopathy, unspecified; Z87.891 Personal history of nicotine dependence; Z79.899 Other long term (current) drug therapy; Z88.2 Allergy status to sulfonamides; Z88.8 Allergy status to other drugs, medicaments and biological substances; Z82.49 Family history of ischemic heart disease and other diseases of the circulatory system

== ENCOUNTER 2021-05-22 07:07 | Inpatient (IN) | payer BC ==
[2021-05-22] VITALS (7 sets, daily range): BP systolic 90–122; BP diastolic 52–79
[~2021-05-22] VITALS: Ht 160 cm; Wt 109.3 kg
[~2021-05-22 07:07] MED LIST changes: +METOPROLOL SUCC50 MG PO
[2021-05-22 07:44] LABS: ABSOLUTE NEUTROPHILS 3.5 thou/uL (1.4-8.2); BASOPHILS 0.9 % (0.0-2.0); EOSINOPHILS 0.3 % (0.0-3.0); HEMATOCRIT 38.7 % (37.0-47.0); HEMOGLOBIN 12.4 gm/dL (12.0-15.0); LYMPHOCYTES 25.1 % (24.0-44.0); MCH 29.2 pg (26.0-34.0); MCHC 31.9 g/dL (28.0-37.0); MCV 91.4 fL (80.0-100.0); MONOCYTES 11.3 % (1.0-8.0); PLATELET COUNT 110 thou/uL (150-400); POLYS 62.4 % (36.0-66.0); RBC 4.24 mil/uL (4.20-5.00); RDW 16.5 % (10.5-14.5); WBC 5.6 thou/uL (4.0-11.0)
[2021-05-22 07:54] LABS: CALCIUM 8.4 mg/dL (8.5-10.1); CREATININE 2.7 mg/dL (0.6-1.0); POTASSIUM 4.3 mmol/L (3.5-5.1)
--- NOTE | 2021-05-22 18:23 | NUR ---
RECEIVED REPORT ON THIS PATIENT FROM ER NURSE. PATIENT ADMITTED FROM ER COVID POSTIVE; ENHANCED PRECAUTIONS. PATIENT IS SOA WITH EXERTION AND TACHYCARDIC WHEN ARRIVED TO THE UNIT. INFORMED DR. GARRETT ABOUT PATIENTS PERSISTENT TACHYCARDIA; ORDERS RECEIVED AND MEDS ADMINISTERED. WILL CONTINUE TO MONITOR. PATIENT DENIES CHEST PAIN OR PALPITATION. PATIENT AXOX4; HARD OF HEARING. PT SETTLED INTO ROOM; ATE 100% OF DINNER. DENIES ANY NEEDS AT THIS TIME. FALL PRECAUTIONS IN PLACE AND CALL LIGHT WITHIN REACH.
[2021-05-23] VITALS (9 sets, daily range): BP systolic 85–119; BP diastolic 55–79
--- NOTE | 2021-05-23 02:26 | NUR ---
PT ALERT ANDORIENTED X4 BUT VERY [place] AND DIFFICULT TO COMMUNICATE WITH WHEN HER HEARING AIDES ARE OUT. BP MODERATELY LOW. ACCU CHECK 277. TONIGHT. NO EXTRA INSULIN ORDERED TO BE GIVEN WHEN I REPORTEED ACCUCHECK TO BUTTERMAKER CPAP APPLIED PER RT. PRESENTLY SHE IS RESTING QUIETLY NO S/S DISRESS OR PAIN.
--- NOTE | 2021-05-23 03:58 | NUR ---
NOTIFED DECORATING CONSULTANT AT 2030 BS ELEVAGTED BUT NO COVERAHE AT HS ACCUCHECK. NO ADDITIONAL INSUIN ORDERED.
--- NOTE | 2021-05-23 04:44 | NUR ---
RESTING QUIETLY. NO C/O. NO S/S DISTRESS ON CPAP.
[2021-05-23 06:19] LABS: ABSOLUTE NEUTROPHILS 2.4 thou/uL (1.4-8.2); BASOPHILS 0.2 % (0.0-2.0); HEMATOCRIT 34.7 % (37.0-47.0); HEMOGLOBIN 11.4 gm/dL (12.0-15.0); LYMPHOCYTES 16.1 % (24.0-44.0); MCH 29.9 pg (26.0-34.0); MCHC 32.7 g/dL (28.0-37.0); MCV 91.4 fL (80.0-100.0); MONOCYTES 8.5 % (1.0-8.0); PLATELET COUNT 101 thou/uL (150-400); POLYS 75.2 % (36.0-66.0); RDW 16.2 % (10.5-14.5); WBC 3.2 thou/uL (4.0-11.0)
[2021-05-23 06:42] LABS: ALBUMIN 2.9 g/dL (3.4-5.0); CALCIUM 7.9 mg/dL (8.5-10.1); CREATININE 3.2 mg/dL (0.6-1.0); MAGNESIUM 1.9 mg/dL (1.8-2.4); PHOSPHORUS 6.4 mg/dL (2.5-4.9); POTASSIUM 4.7 mmol/L (3.5-5.1)
--- NOTE | 2021-05-23 07:33 | HC ---
[facility] [place] [address] CONSULTATION Name: XOCHITL BETH Room #: 350-P ADM IN M.R.#: [id number] Admission: 05/22/21 Attend Phys: Hernan Sotelo MD Discharge: Date of : 38 Report #: [id number] THIS REPORT FOR: cc: Jamison Burnett MD, Rene P. MD Barry, Joseph W. MD ~ DATE OF SERVICE: 05/22/2021 INFECTIOUS DISEASE CONSULTATION ATTENDING PHYSICIAN: Dr. Sotelo. REASON FOR EVALUATION: COVID-19 infection, complicated by pneumonitis and respiratory failure with severe diarrhea as well. HISTORY OF PRESENT ILLNESS: Chart reviewed. The patient examined. This is an 80-year-old woman with known history of diabetes mellitus, has been complicated by vasculopathy, has cardiomyopathy with coronary artery disease, depressed ejection fraction, who lives independently, became ill over the last several days, progressive dyspnea, cough, intermittently productive, also significant diarrhea. She does admit to associated abdominal pain as well. She was evaluated with home test, was confirmed to be positive for COVID-19. Due to the lack of improvement, she did present to the Emergency Room. Lactic acid was elevated at 2.1. Creatinine elevated at 2.7. Chest x-ray did show bilateral infiltrates. She was empirically started on ceftriaxone and azithromycin. She is maintained on supplemental oxygen 2 L per nasal cannula at this point. She appears ill, not overtly toxic, mild encephalopathy. ALLERGIES: SULFA, WHICH CAUSES A RASH. CURRENT MEDICATIONS: Include cholecalciferol, zinc, ceftriaxone, azithromycin, ____, ferrous sulfate, pantoprazole. PAST MEDICAL HISTORY: As described above, diabetes mellitus complicated by vasculopathy, chronic renal insufficiency, coronary artery disease with congestive heart failure in the setting of cardiomyopathy, hypotension. SOCIAL HISTORY: Nonsmoker, no ethanol. FAMILY HISTORY: Noncontributory. REVIEW OF SYSTEMS: Otherwise, unremarkable. PHYSICAL EXAMINATION: GENERAL: She appears ill. She is responsive moderate distress. VITAL SIGNS: Temperature 97.9, pulse 132, respirations 30, blood pressure [facility] [address] [place] [address] CONSULTATION Name: XOCHITL BETH Room #: 350-P [facility] IN [facility].#: [id number] Admission: 05/22/21 Attend Phys: Hernan Sotelo MD Discharge: Date of : 38 Report #: [id number] 114/71. SKIN: Warm, dry, no rashes. HEENT: Normocephalic. Extraocular muscles intact. Nasal cannula in place, 2 liters. NECK: Supple. LUNGS: Few scattered coarse breath sounds. HEART: Tachycardic, regular, do not appreciate a murmur. ABDOMEN: Mildly distended, somewhat firm. She does admit to some tenderness, although there is no overt peritoneal signs. GENITOURINARY AND RECTAL: Deferred. LABORATORY DATA: CRP of 22.7. Procalcitonin 0.1. Lactic acid 1.3. D-dimer 2.87. Chest x-ray as described above, left basilar partially consolidative infiltrate, mild bilateral perihilar and right basilar, but not consolidated infiltrates. ProBNP of 6063. Lactic acid initially 2.1. CBC: White count of 5.6, H and H 12.4 and 38.7, platelets of 110. ASSESSMENT AND PLAN: COVID-19 infection, complicated by pneumonitis and respiratory failure with perhaps early acute respiratory distress syndrome ____ diabetes mellitus with known vasculopathy, multiple organ dysfunction, early cardiomyopathy, coronary artery disease. We will continue empiric antibacterial therapy, ceftriaxone, azithromycin in addition directed therapy with remdesivir, give a single dose Actemra corticosteroids. She remains quite tenuous at this point. We will continue to monitor expectantly. Oxygen support as required. <ELECTRONICALLY SIGNED> By: Gregory Moreno MD 05/23/21 0733 1100 18 Gregory Moreno MD /nt
--- NOTE | 2021-05-23 12:42 | EKG ---
[address] [address] ELECTROCARDIOGRAM REPORT Name: LARISA BETHLY NATALIE Room #: 350-[facility] IN M.R.#: [id number] Admission: 05/22/21 Attend Phys: Hernan Sotelo MD Discharge: Date of : 38 Report #: [id number] [facility] ED Test Date: 2021-05-22 Test Time: 07:28:55 Pat Name: XOCHITL BETH Department: Room: 350 Gender: F Inserting Operator: ofelia : 1940 Requested By: Gabriel Kruse Order Number: [id number] MD: Matti Hubbard Measurements Intervals [place] Rate: 132 P: 28 [place]: 219 QRS: -71 QRSD: 118 T: 92 QT: 372 QTc: 551 Interpretive Statements Sinus tachycardia Atrial premature complex Prolonged [place] interval Right bundle branch block Low voltage, extremity and precordial leads Electronically Signed On 05-23-2021 12:42:05 CHOREOGRAPHY DIRECTOR by Matti Hubbard [email or web address] <ELECTRONICALLY SIGNED> By: Matti Hubbard MD 05/23/21 1242 727 7 Matti Hubbard MD /[facility]
[2021-05-23 15:59] LABS: URINE BILIRUBIN NEGATIVE (Negative); URINE BLOOD 3+ (Negative); URINE CLARITY CLEAR; URINE COLOR YELLOW; URINE GLUCOSE-RANDOM* NEGATIVE (Negative); URINE KETONES NEGATIVE (Negative); URINE LEUKOCYTES-REFLEX NEGATIVE (Negative); URINE NITRITE-REFLEX NEGATIVE (Negative); URINE PROTEIN (DIPSTICK) 2+ (Negative); URINE SPECIFIC GRAVITY >= 1.030 (1.005-1.035); URINE UROBILINOGEN 0.2 E.U./dl (0.2-1.0)
[2021-05-23 17:29] LABS: SQUAMOUS 4-10 Moderate /LPF (0-3)
[2021-05-23 17:30] LABS: BACTERIA-REFLEX 1-9 Few /HPF (None Seen); CASTS None Seen /LPF (None Seen); CRYSTALS None Seen /LPF (None Seen); URINE WBC-REFLEX 0-5 Rare /HPF (0-5)
--- NOTE | 2021-05-23 18:26 | NUR ---
ASSUMED PATIENT CARE AT 0700. A/O X4. HARD HEARING. ST ON MONITOR. BP ON THE LOW SIDE. RUIZ INSERTED NO UNINE OUT PUT. DR JAMES UPTATED. CALLED DR LAGUNA ABOUT HR UP TOP 135/M. PATIENT ON RA/ CPAP O2 SAT 95- 100%. SOB WITH EXERTION. UPTATED WITH HER DAUGHTER. NOT TOWARDS POC GOALS.
[2021-05-24] VITALS (7 sets, daily range): BP systolic 107–132; BP diastolic 73–94
[2021-05-24 00:34] LABS: APTT 33.1 Seconds (24.5-32.8); INR 1.18; PROTIME 12.8 Seconds (10.5-12.1)
--- NOTE | 2021-05-24 02:37 | NUR ---
LATE ENTRY FOR 05/22/21. I READ RESULTS OF DDPPLER STUDIES TO LACE WEAVER AFTER THE RESULTS WERE AVAILABLE LAST NIGHT ON 05/22/21. NO ORDERS WERE GIVEN AT THE TIME. PT WAS ON LOVENOX AT THE TIME.
[2021-05-24 06:55] LABS: HEMOGLOBIN 11.7 gm/dL (12.0-15.0); MCH 29.2 pg (26.0-34.0); MCHC 32.5 g/dL (28.0-37.0); MCV 90.1 fL (80.0-100.0); WBC 8.2 thou/uL (4.0-11.0)
[2021-05-24 07:29] LABS: CALCIUM 7.8 mg/dL (8.5-10.1); CREATININE 3.6 mg/dL (0.6-1.0); PHOSPHORUS 5.6 mg/dL (2.5-4.9); POTASSIUM 4.6 mmol/L (3.5-5.1)
--- NOTE | 2021-05-24 07:50 | NUR ---
Patient not maiking progress towards outcome goals. Oxygenation optimal on room air and tolerating brittany CPAP sats upper 90's. Short of breath with any activity. Started to make urine, clear yellow. Output 650 ml this shift. Heparin drip started per protocol. Bicarb drip infusing. SBP's better, upper 100's. Remains tachycardic 120-140's, HR for a couple of hours 80-90. Enhanced precautions for COVID. High fall risks, fall precautions in place.
--- NOTE | 2021-05-24 18:21 | NUR ---
ASSUMED PATIENT CARE AT 0700. A/0 X4. ON RA WITH CPAP PRN. SON WITH EXERTION. UP WITH STANDBY. ON HEPAARIN GTT. 700ML URINE OUTPUT. ST ON MONITOR. SLOWLY TOWARDS POC GOALS.
[2021-05-24 21:31] LABS: URINE BILIRUBIN NEGATIVE (Negative); URINE BLOOD 3+ (Negative); URINE CLARITY CLEAR; URINE COLOR YELLOW; URINE GLUCOSE-RANDOM* NEGATIVE (Negative); URINE KETONES NEGATIVE (Negative); URINE LEUKOCYTES-REFLEX TRACE (Negative); URINE NITRITE-REFLEX NEGATIVE (Negative); URINE PROTEIN (DIPSTICK) NEGATIVE (Negative); URINE UROBILINOGEN 0.2 E.U./dl (0.2-1.0)
[2021-05-24 21:42] LABS: SQUAMOUS None Seen /LPF (0-3)
[2021-05-24 21:43] LABS: BACTERIA-REFLEX None Seen /HPF (None Seen); CASTS None Seen /LPF (None Seen); CRYSTALS None Seen /LPF (None Seen); MUCUS 0-3 Light strn/LPF (None Seen); URINE WBC-REFLEX 0-5 Rare /HPF (0-5)
[2021-05-24 21:46] LABS: PROT/CREAT RATIO 0.3; URINE CREATININE-RANDOM* 52.6 mg/dL; URINE PROTEIN-RANDOM* 14.7 mg/dL (<11.9)
[2021-05-25 00:43] LABS: HEMATOCRIT 32.9 % (37.0-47.0); MCH 29.6 pg (26.0-34.0); MCHC 33.3 g/dL (28.0-37.0); MCV 88.9 fL (80.0-100.0); RBC 3.7 mil/uL (4.20-5.00); RDW 15.5 % (10.5-14.5); WBC 8.5 thou/uL (4.0-11.0)
[2021-05-25 00:52] LABS: ALBUMIN 2.9 g/dL (3.4-5.0); CALCIUM 7.5 mg/dL (8.5-10.1); CREATININE 3.5 mg/dL (0.6-1.0); PHOSPHORUS 4.5 mg/dL (2.6-4.7); POTASSIUM 4.3 mmol/L (3.5-5.1)
[2021-05-25 04:07] VITALS: BP 119/84
--- NOTE | 2021-05-25 06:03 | NUR ---
Patient making slow progress towards outcome goals. Oxygenation optimal on room air/ home cpap at night on room air, sats mid to upper 90's. Short of breath with any activity. Bicarb drip infusing. Heparin drip per protocol. Tachycardic 120-130's with brief periods in 90's on Metoprolol and Amiodarone. Appetite poor. Throat lozenges for dry throat.
[2021-05-25 07:38] VITALS: BP 125/90
[2021-05-25 16:38] VITALS: BP 143/74
--- NOTE | 2021-05-25 16:55 | NUR ---
INITIAL ASSESSMENT: ROGER reviewed chart and spoke with nursing and attending physician. Pt was admitted from home due to CHF. Pt had positive COVID test in the ER. Pt placed in Enhanced Isolation. Pt has received the [employer] COVID vaccination. Pt is afebrile. Pt has been using cpap. Pt is on IV abx and IV Steroids. ROGER placed call to pt's room. No answer. Per chart, pt is alert/orientated x 4. Pt lives at home with family. Pt was recently discharged home from [facility] on 05/08 with Chepe BURNETTE. Pt is currently on service with . 5N consult ordered to evaluate pt for discharge needs. Pt refused OT today. Pt unable to work with PT due to elevated HR. ROGER is following to assist as needed with discharge planning.
[2021-05-25 19:23] VITALS: BP 129/77
[2021-05-26 03:50] VITALS: BP 130/83
--- NOTE | 2021-05-26 06:31 | NUR ---
PT ALERT & ORIENTED X 4. PT ON CPAP AT BEDTIME. PT C/O CPAP WASN'T WORKING PROPERLY BUT IT WAS BROUGHT FROM HOME. RT NOTIFIED. JOSEPH TO DD. HEPARIN DRIP PER PROTOCOL. BICARB DRIP INFUSING AT 80ML/HR. PT IS ST ON TELE. NO C/O OF PAIN, NAUSEA/VOMITTING. WILL CONTINUE TO MONITOR.
[2021-05-26 08:09] LABS: ABSOLUTE NEUTROPHILS 13.9 thou/uL (1.4-8.2); HEMATOCRIT 39.3 % (37.0-47.0); HEMOGLOBIN 12.7 gm/dL (12.0-15.0); LYMPHOCYTES 7.1 % (24.0-44.0); MCHC 32.2 g/dL (28.0-37.0); MONOCYTES 8.1 % (1.0-8.0); PLATELET COUNT 185 thou/uL (150-400); POLYS 84.8 % (36.0-66.0); RBC 4.36 mil/uL (4.20-5.00); RDW 15.8 % (10.5-14.5); WBC 16.4 thou/uL (4.0-11.0)
[2021-05-26 08:10] VITALS: BP 135/92
[2021-05-26 08:16] LABS: ALBUMIN 3.4 g/dL (3.4-5.0); CALCIUM 8.6 mg/dL (8.5-10.1); CREATININE 3.2 mg/dL (0.6-1.0); PHOSPHORUS 5.8 mg/dL (2.5-4.9); POTASSIUM 4.2 mmol/L (3.5-5.1)
[2021-05-26 08:25] LABS: CALCIUM 8.6 mg/dL (8.5-10.1); CREATININE 3.2 mg/dL (0.6-1.0); POTASSIUM 4.4 mmol/L (3.5-5.1)
[2021-05-26 11:49] VITALS: BP 141/86
[2021-05-26 15:13] VITALS: BP 153/95
--- NOTE | 2021-05-26 16:26 | NUR ---
SW reviewed chart and spoke with nursing and attending physician. Pt remains in Enhanced Isolation due to COVID. Pt is afebrile and is now requiring bipap support. Pt is on IV abx and IV Steroids. Heparin gtt. Pt's code status changed to DNR earlier today. Pt might transfer to ICU. Therapy on hold at this time. 5N is following. SW is following to assist as needed with discharge planning.
[2021-05-26 20:04] VITALS: BP 152/95
[2021-05-27 04:15] VITALS: BP 169/83
--- NOTE | 2021-05-27 05:10 | NUR ---
PT ALERT & ORIENTED X 4. PT HAS SOME CONFUSION. PT ANXIOUS THROUGHOUT SHIFT. ADMINISTERED FENTANYL PRN. CURRENTLY ON 10L O2 HIFLOW CANNULA. NO C/O OF PAIN. PT IS TACHY ON TELE MONITOR. PT STARTED C/O OF NAUSEA AROUND 0430, ADMINISTRED NAUSEA MEDICATION PRN. HEPARIN DRIP PER PROTOCOL. PT IS CURRENTLY SITTING UP ON CHAIR. CHAIR ALARM IS ON. WILL CONTINUE TO MONITOR.
[2021-05-27 05:49] LABS: HEMATOCRIT 38.7 % (37.0-47.0); HEMOGLOBIN 12.3 gm/dL (12.0-15.0); MCHC 31.7 g/dL (28.0-37.0); MCV 91.7 fL (80.0-100.0); RBC 4.23 mil/uL (4.20-5.00); WBC 18.1 thou/uL (4.0-11.0)
[2021-05-27 06:18] LABS: ALBUMIN 3.5 g/dL (3.4-5.0); CALCIUM 8.3 mg/dL (8.5-10.1); CREATININE 3.4 mg/dL (0.6-1.0); PHOSPHORUS 7.6 mg/dL (2.5-4.9); POTASSIUM 4.4 mmol/L (3.5-5.1)
[2021-05-27 07:53] VITALS: BP 159/109
--- NOTE | 2021-05-27 08:42 | EKG ---
[address] [address] [facility] [place] [address] ELECTROCARDIOGRAM REPORT Name: XOCHITL BETH Room #: 350- ADM IN M.R.#: [id number] Admission: 05/22/21 Attend Phys: Hernan Sotelo MD Discharge: Date of : 38 Report #: [id number] [facility] Test Date: 2021-05-26 Test Time: 12:37:37 Pat Name: XOCHITL BETH Department: Room: 350 P Gender: F Axminster Weaver: SHANTELLE : 1940 Requested By: Dexter Acosta Order Number: [id number] MD: Harry Cabezas Measurements Intervals [place] Rate: 134 P: 0 [place]: 123 QRS: -76 QRSD: 137 T: 103 QT: 284 QTc: 424 Interpretive Statements Possible atrial flutter vs sinus tachycardia Right bundle branch block Nonspecific T abnormalities, lateral leads Low voltage Compared to ECG 05/22/2021 07:28:55 Premature ventricular complexes no longer present Electronically Signed On 05-27-2021 8:42:45 AUTOMATIC CLIPPER by Harry Cabezas [email or web address] <ELECTRONICALLY SIGNED> By: Harry Cabezas MD, [facility] 05/27/21 0842 1237 1237 Harry Cabezas MD, [facility] /EPI
--- NOTE | 2021-05-27 09:53 | 2DMMODE ---
[address] [address] 2 D/M-MODE ECHOCARDIOGRAM Name: XOCHITL BETH Room #: 350-P ADM IN M.R.#: [id number] Admission: 05/22/21 Attend Phys: Hernan Sotelo MD Discharge: Date of : 38 Report #: [id number] THIS REPORT FOR: cc: Jamison Burnett MD, Rene P. MD Santiago, Patrick MD [facility] ~ APPROVED REPORT Study performed: 05/27/2021 09:12:12 EXAM: Comprehensive 2D, Doppler, and color-flow Echocardiogram Patient Location: Bedside Room #: 350 Status: routine BSA: 2.06 HR: 130 bpm BP: 159/109 mmHg Rhythm: Tachycardia Other Information Study Quality: Adequate Technically limited study due to Patient scanned in her recliner, morbid obesity.. Indications Limited follow up echo. CHF, cardiomyopathy, COVID + (Recent echo done 04/28/21. EF was 35%). Tricuspid Valve TR Peak Miguel A.: 3.07 m/s TR Peak Gr.: 38.00 mmHg Left Ventricle The left ventricle is normal size. Left ventricular systolic function is severely decreased. LVEF is 25%. Right Ventricle Right ventricle is dilated. Right ventricle is hypokinetic. Atria Biatrial enlargement. Aortic Valve [address] [place] [address] 2 D/M-MODE ECHOCARDIOGRAM Name: XOCHITL BETH Room #: 350-P ADM IN M.R.#: [id number] Admission: 05/22/21 Attend Phys: Hernan Sotelo MD Discharge: Date of : 38 Report #: [id number] The Aortic valve is mildly sclerotic. No aortic regurgitation is present. There is no aortic valvular stenosis. Mitral Valve There is mitral annular calcification. Moderate to severe mitral regurgitation Tricuspid Valve Severe tricuspid regurgitation. Estimated PAP is 38mmHg plus the right atrial pressure. Great Vessels IVC is poorly visualized. Pericardium There is no pericardial effusion. Pleural effuion noted. <Conclusion> Normal left ventricle size/wall thickness Global hypokinesis ejection fraction 20-25% Right ventricle mildly dilated/mildly hypokinetic Mild biatrial enlargement Mild aortic valve sclerosis without stenosis Moderatesevere/posteriorly directed mitral valve insufficiency Severe tricuspid valve insufficiency Pulmonary systolic pressure estimated 38 mmHg No pericardial effusion Normal aortic root size <ELECTRONICALLY SIGNED> By: Brody Smith MD, FACC 05/27/21951 1 1 Brody Smith MD, FACC /INF
[2021-05-27 12:00] VITALS: BP 125/99
[2021-05-27 16:16] VITALS: BP 120/69
--- NOTE | 2021-05-27 18:03 | NUR ---
PATIENT HAS BEEN ALERT AND ORIENTED X4 THIS SHIFT. SHE IS HARD OF HEARING. PATIENT IS ON 7-8 LITERS OF OXYGEN VIA HIGH FLOW NASAL CANULA. SHARAN HAS WHEEZES IN ALL OF HER LOBES. PATIENT IS CC/ TELE AND WAS SINUS TACH IN THE 130'S AT THE BEGINNING OF THIS SHIFT. PATIENT AFTER TAKING HER PO CARDIZEM HAS BEEN SINUS RHYTHM IN THE 80'S. PATIENT HAD REPORTS OF NAUSEA WITH EMESIS ON THE PREVIOUS SHIFT. PATIENT HAS HAS NO COMPLAINTS OF NAUSEA OR VOIMITING THIS SHIFT. PATIENT HAD HER LAST BM ON 05/23. PATIENT CONTINUES TO HAVE REDNESS TO HER SKIN FOLDS AND GROIN. NYSTATIN WAS APPLIED PER ORDER. PATIENT WAS GIVEN NO PRN FENTANYL THIS SHIFT. PATIENTS APTT IS 67.2. PATIENT IS TO CONTINUE HER HEPARIN DRIP AT 6 ML/ HR. PATIENT HAS THREE IV'S LEFT UPPER ARM, LEFT FOREARM, AND LEFT HAND WHICH IS WHERE THE HEPARIN DRIP IS RUNNING. PATIENT CONTINUES TO BE ON ENHANCED PRECAUTIONS. PATIENT WILL CONTINUE TO BE MONITORED.
[2021-05-27 19:03] VITALS: BP 145/62; BP 1450/62
--- NOTE | 2021-05-28 03:49 | NUR ---
PT IS ALERT & ORIENTED X 4 AND IS CALM & COOPERATIVE. CURRENTLY ON 7L O2 NC. PT IS USING CPAP HS WITH 5L O2. RUIZ TO JOSÉ. HEPARIN DRIP PER PROTOCOL. IV ABX ADMINISTERED. NO C/O OF PAIN, NAUSEA/VOMITTING. WILL CONTINUE TO MONITOR.
[2021-05-28 04:09] VITALS: BP 140/91
[2021-05-28 05:32] LABS: CALCIUM 8.6 mg/dL (8.5-10.1); CREATININE 3.4 mg/dL (0.6-1.0); PHOSPHORUS 6.6 mg/dL (2.5-4.9); POTASSIUM 4.8 mmol/L (3.5-5.1)
[2021-05-28 07:45] VITALS: BP 150/93
[2021-05-28 12:02] VITALS: BP 116/83
--- NOTE | 2021-05-28 13:48 | NUR ---
CARE ASSUMED THIS AM, ALERT AND ORIENTED X4, FORGETFUL AND CONFUSED AT TIMES. CURRENTLY ON 2L, SOB WIYH EXERTION AND WHEEZY MOST TIMES. HEPARIN DRIP PER PROTOCOL. RUIZ CATHETER IN PLACE. UP IN CHAIR WITH PT. DTR CALLED AND UPDATED ABOUT CARE. FALL AND ENHANCED PRECAUTIONS IN PLACE. DENIES ANY NEEDS, WILL CONTINUE TO MONITOR.
[2021-05-28 15:23] VITALS: BP 124/56
[2021-05-28 18:58] VITALS: BP 137/89
[2021-05-29 03:43] VITALS: BP 139/74
--- NOTE | 2021-05-29 04:47 | NUR ---
PT MAKING POOR PROGRESS TOWARDS GOALS. ON O2 AT 5L PER NC OVERNIGHT. NOTED WHEEZING UPON INITIAL ASSESSMENT. LUNGS DIMINISHED ON FOLLOWING REASSESSMENTS. OCCASIONAL NONPRODUCTIVE COUGH NOTED.
[2021-05-29 06:45] LABS: ALBUMIN 3.3 g/dL (3.4-5.0); CALCIUM 8.6 mg/dL (8.5-10.1); CREATININE 3.7 mg/dL (0.6-1.0)
[2021-05-29 07:16] VITALS: BP 152/73
--- NOTE | 2021-05-29 10:13 | NUR ---
Assess for length of stay. Admit with covid, renal failure, CHF. Advanced age 80, made DNR on 05/26. Wt obese, BMI 41. Intake poor for few days but did eat 30-75% yesterday. Wts ranging 224-230s. presents low nutrition risk
[2021-05-29 11:04] VITALS: BP 130/71
[2021-05-29 15:15] VITALS: BP 117/55
--- NOTE | 2021-05-29 16:26 | NUR ---
CASE DISCUSSED WITH THE CARE TEAM. CONTACT NUMBER DAUGHTER BENJAMIN WHO WORKS IN [facility] [phone] AND PROVIDED TO RENAL AND HOSPITALIST GOAL CONVERSATION. PT UNABLE TO TOLERATE BIPAP AND CONTINUES TO BE IN COVID ISOLATION. SHE IS A DNR. POSSIBLE PALLIATIVE CARE CONSULT. DAUGHTER STATED SHE REALLY WANTS PT TO GO HOME WITH FAMILY SOON.
--- NOTE | 2021-05-29 18:10 | NUR ---
ASSUMED PATIENT CARE AT 0700. A/O X 2. SOB WITH EXERTION. GENERLIZED JONNY. 300ML URINE OUTPUT. NOT TOWARDS POC GOALS.
[2021-05-29 19:42] VITALS: BP 136/50
[2021-05-30 03:45] VITALS: BP 132/72
[2021-05-30 05:11] LABS: ALBUMIN 3.1 g/dL (3.4-5.0); CALCIUM 8.4 mg/dL (8.5-10.1); CREATININE 3.9 mg/dL (0.6-1.0); PHOSPHORUS 6.4 mg/dL (2.6-4.7)
[2021-05-30 07:02] VITALS: BP 123/74
--- NOTE | 2021-05-30 08:43 | NUR ---
PT MAKING SLOW PROGRESS TOWARDS GOALS. ON O2 AT 5L PER NC OVERNIGHT. DID WEAR BIPAP WITH 5L OXYGEN OVERNIGHT. STATED "I JUST DON'T FEEL GOOD." LUNGS CTA/DIMINISHED THROUGHOUT.
[2021-05-30 11:17] VITALS: BP 136/87
--- NOTE | 2021-05-30 12:10 | EKG ---
[address] [address] ELECTROCARDIOGRAM REPORT Name: XOCHITL BETH Room #: 350- ADM IN M.R.#: [id number] Admission: 05/22/21 Attend Phys: Hernan Sotelo MD Discharge: Date of : 38 Report #: [id number] [facility] Test Date: 2021-05-30 Test Time: 11:20:24 Pat Name: XOCHITL BETH Department: Room: 350 P Gender: F Life Insurance Salesperson: KARMA : 1940 Requested By: Asim Stacy Order Number: [id number] MD: Harry Cabezas Measurements Intervals [place] Rate: 107 P: [place]: QRS: -55 QRSD: 131 T: 32 QT: 344 QTc: 459 Interpretive Statements Atrial fibrillation RBBB and LAFB Compared to ECG 05/26/2021 12:37:37 No significant change was found Electronically Signed On 05-30-2021 12:10:32 CHILDCARE ADMINISTRATOR by Harry Cabezas [email or web address] <ELECTRONICALLY SIGNED> By: Harry Cabezas MD, [facility] 05/30/21 1210 1120 1120 Harry Cabezas MD, [facility] /EPI
[2021-05-30 12:27] LABS: MAGNESIUM 2.1 mg/dL (1.8-2.4)
[2021-05-30 15:06] VITALS: BP 142/69
--- NOTE | 2021-05-30 18:41 | NUR ---
PT ALERT AND ORIENTED TO SELF AND PLACE ONLY. PT COMPLAINED OF CHEST PAIN APPROX 1130 THIS AM. STAT EKG AND TROPONIN ORDERED, EKG UNREMARKABLE AND TROPONIN ELEVATED AT 135. HOSPITALIST AND VICE PRESIDENT REGULATORY NOTIFIED. SPOKE WITH DAUGHTER, BENJAMIN ON PHONE AND GAVE UPDATE. RUIZ DRAINED 1050 ML DURING SHIFT. WILL CONTINUE TO MONITOR.
[2021-05-30 19:20] VITALS: BP 131/66
[2021-05-31 04:55] VITALS: BP 135/70
--- NOTE | 2021-05-31 05:14 | NUR ---
Pt. rested quietly during the night when checked on during frequent rounds. She is alert and oriented times two. No c/o chest pain and has been a-fib on the monitor. Pt. turned and repositioned. Bed alarm is on.
[2021-05-31 05:23] LABS: HEMATOCRIT 31.7 % (37.0-47.0); HEMOGLOBIN 10.2 gm/dL (12.0-15.0); MCH 29.4 pg (26.0-34.0); MCHC 32.2 g/dL (28.0-37.0); MCV 91.3 fL (80.0-100.0); RBC 3.47 mil/uL (4.20-5.00); RDW 15.9 % (10.5-14.5); WBC 11.9 thou/uL (4.0-11.0)
[2021-05-31 05:36] LABS: CALCIUM 8.5 mg/dL (8.5-10.1); CREATININE 3.9 mg/dL (0.6-1.0)
[2021-05-31 07:25] VITALS: BP 133/73
[2021-05-31 11:20] VITALS: BP 136/87
[2021-05-31 14:59] VITALS: BP 139/80
--- NOTE | 2021-05-31 18:30 | NUR ---
ASSUMED PATIENT CARE AT 0700. A/O X4 CONFUSED. SOB WITH EXERTION. C/O CHEST PAIN. WILL HAVE EKG. NOT TOWARDS POC GOALS.
[2021-05-31 19:30] VITALS: BP 120/69
[2021-06-01 03:07] VITALS: BP 143/79
--- NOTE | 2021-06-01 05:15 | NUR ---
ASSUMED PT CARE AT 1900. PT HAS A FLAT AFFECT AND IS CONFUSED. PT IS UP IN BED. PT ON 2L O2 NC AND USES CPAP HS. PT BLOOD SUGAR AT 193 WAS 424. ADMINISTERED SLIDING SCALE INSULIN AND NOTIFIED MECHANICAL SERVICE TECHNICIAN. THIS NURSE RECHECKED THE BLOOD SUGAR AT 2352 AND IT WAS 399. NOTIFIED MECHANICAL SERVICE TECHNICIAN AND RECEIVED ORDERS. PT HAS RUIZ TO DD. CONTINUE WITH PLAN OF CARE.
[2021-06-01 08:23] VITALS: BP 115/83
--- NOTE | 2021-06-01 09:03 | EKG ---
[address] [address] ELECTROCARDIOGRAM REPORT Name: XOCHITL BETH Room #: 350- ADM IN M.R.#: [id number] Admission: 05/22/21 Attend Phys: Hernan Sotelo MD Discharge: Date of : 38 Report #: [id number] [facility] Test Date: 2021-05-31 Test Time: 18:34:58 Pat Name: XOCHITL BETH Department: Room: 350 Gender: F Chairman President And Chief Executive Officer: AGUSTIN : 1940 Requested By: Harry Cabezas Order Number: [id number] MD: Harry Cabezas Measurements Intervals [place] Rate: 115 P: [place]: QRS: -47 QRSD: 149 T: QT: 350 QTc: 484 Interpretive Statements Atrial fibrillation RBBB and LAFB Compared to ECG 05/30/2021 11:20:24 No significant changes Electronically Signed On 06-01-2021 9:03:04 CATALYST OPERATOR by Harry Cabezas [email or web address] <ELECTRONICALLY SIGNED> By: Harry Cabezas MD, [facility] 06/01/21 0903 1834 33 Harry Cabezas MD, FACC /EPI
[2021-06-01 11:07] VITALS: BP 155/83
--- NOTE | 2021-06-01 14:11 | NUR ---
SW reviewed chart and spoke with nursing and attending physician. Pt remains in Enhanced Isolation due to COVID. Pt is afebrile and on 2L of O2 via NC. Pt is on IV steroids and IV lasix. CT of chest ordered today. Palliative care consult being considered to discuss goals of care with pt and family. SW is following to assist as needed with discharge planning.
--- NOTE | 2021-06-01 17:00 | NUR ---
DR GARRETT SPOKE WITH PATIENTS DAUGHTER BENJAMIN VELEZ AND SHE DECIDED TO OPT TO TAKE HER MOTHER HOME WITH HOSPICE TOMORROW AND CANCEL THE THORACENTESIS. SHE IS OPEN TO [facility] IF THEY ARE AVAILABLE.SHE PLANS TO TAKE HER MOTHER TO HER MOTHERS HOME AND HAVE HER AND HER SISTER AND PATIENTS GRANDDTR TAKE SHIFTS CARING FOR THEIR MOTHER..
[2021-06-01 17:05] VITALS: BP 155/90
--- NOTE | 2021-06-01 17:40 | NUR ---
Patient is alert to self this shift. Patient is hard of hearing and has been mostly nonverbalthis shift. Patient has been chewing her po medications. Patiets lung sounds are diminished and wheezes are present. Patient has been AFIB running the the mid 110's. Patient has a arboleda catheter in place and it is patent. Patients last BM was 06/01/21 and was small, and she was incontinent. Patient has generalized edema. Patient has been in bed and MAX assistance this shift. Patient is on enhanced precautions. Patient has three IV's one in the left upper forearm that is saline locked and patent, one in the left AC that is saline locked and patent, and one in the left forearm that is saline locked and patent. Patient will continue to be monitored.
[2021-06-01 19:12] VITALS: BP 142/89
[2021-06-02] VITALS (8 sets, daily range): BP systolic 141–173; BP diastolic 60–94
--- NOTE | 2021-06-02 04:58 | NUR ---
PT IS EXTREMELY CONFUSED, ANXIOUS, AND HAS BEEN YELLING OUT "GOD HELP ME" THROUGHOUT SHIFT. THIS NURSE ADDRESSED CONCERNS BUT PT UNABLE TO VOICE NEEDS. ADMINISTRED FENTANYL 50MCG X2 FOR SEVERE ANXIETY, NOTED SOME RELIEF. PT HAS RUIZ TO DD. PLAN IS TO D/C HOME TODAY WITH HOSPICE.
[2021-06-02 06:43] LABS: ALBUMIN 2.7 g/dL (3.4-5.0); CALCIUM 9.2 mg/dL (8.5-10.1); CREATININE 3.9 mg/dL (0.6-1.0); PHOSPHORUS 6.2 mg/dL (2.5-4.9); POTASSIUM 4.5 mmol/L (3.5-5.1)
[2021-06-02] MEDS ORDERED: LOPRESSOR100 M1 PO (08:11)
[2021-06-02] MEDS ORDERED: PACERONE 200 M200 M1 PO (08:11)
[2021-06-02] MEDS ORDERED: VERAPAMIL HCL 880 M1 PO (08:11)
[2021-06-02] MEDS ORDERED: IMDUR 30 MG TAB30 M1 PO (08:11)
--- NOTE | 2021-06-02 11:10 | NUR ---
DISCHARGE NOTE: ROGER reviewed chart and spoke with nursing and attending physician. Discussed case with secret service agent. Pt remains in Enhanced Isolation due to COVID. Pt and family have decided to have pt discharge home with hospice services. Pt is on 4L of O2. Pt is medically stable for discharge home today. ROGER spoke with pt's dtr, Giuliana, via phone to discuss discharge plan. Giuliana is agreeable with plan. Pt will be returning to her home. Address confirmed with Giuliana. ROGER discussed options for hospice agencies. Pt's was on service with Hospice. Pt's dtr states that they would like to have pt discharge home today if possilbe. Pt's dtr is open to other hospice agencies if Hospice cannot admit today. ROGER faxed hospice referral to [facility] and spoke with lEena in intake to notify of new referral. Per Elena, Hospice is able to admit pt today. Hospice to contact pt's dtr to coordinate delivery of DME. Pt will need ambulance transportation home. Outside the Hospital DNR form signed by physician and placed on pt's chart. Awaiting final discharge ppwk at this time. ROGER is following to assist as needed with discharge planning.
--- NOTE | 2021-06-02 15:20 | NUR ---
PATIENT IS ALERT TO SELF MINIMALLY THIS SHIFT. SHE IS HARD OF HEARING. PATIENT IS ON HER CPAP WITH 4L OF OXYGEN. PATIENTS LUNGS SOUND COARSE WITH WHEEZES. PATIENT IS CC/ TELE AND WAS AFIB RUNNIN IN THE 120'S AT THE BEGINNING OF THIS SHIFT; AT APPROXIMATELY 1400 PATIENT BECAME SINUS BENTLEY RUNNING IN THE HIGH 30'S AND 40'S. PATIENT HAS A RUIZ CATHETER IN PLACE AT IT IS PATENT. PATIENT HAS THREE IV'S. THE LEFT UPPER FOREARM IS PATENT AND SALINE LOCKED, THE LEFT AC IS PATENT AND SALINE LOCKED, AND THE LEFT FORERAM IS PATENT AND SALINE LOCKED. PATIENTS LAST BM WAS 05/28. PATIENT HAS BEEN BED BOUND THIS SHIFT AND TURNED Q2 HOURS. PATIENT IS SCHEDULED TO LEAVE THE HOSPITAL TO RETURN HOSPICE AT 1700. PATIENT WILL CONTINUE TO BE MONITORED.
== END 2021-06-02 18:11 | disposition hospice, home (50) | DRG 871 ==
LOC: ER 07:07 → 3W 09:41 → EROBS 09:41 → 3W 16:22
PROVIDERS: Emergency Medicine; Hospitalist; Internal Medicine; Internal Medicine Nephrology; Internal Medicine Pulmonary Disease; Nurse Practitioner; Nurse Practitioner Family; ADMIT Hospitalist; ATTEND Hospitalist
PROC: 5A09557 Assistance with Respiratory Ventilation, Greater than 96 Consecutive Hours, Continuous Positive Airway Pressure (ICD-10-PCS; principal; 2021-05-22)
DX: A41.89 Other specified sepsis (principal); U07.1 COVID-19; J96.01 Acute respiratory failure with hypoxia; J12.82 Pneumonia due to coronavirus disease 2019; I50.23 Acute on chronic systolic (congestive) heart failure; I13.0 Hypertensive heart and chronic kidney disease with heart failure and stage 1 through stage 4 chronic kidney disease, or unspecified chronic kidney disease; N17.9 Acute kidney failure, unspecified; I42.9 Cardiomyopathy, unspecified; Z88.2 Allergy status to sulfonamides; Z90.49 Acquired absence of other specified parts of digestive tract; Z90.710 Acquired absence of both cervix and uterus; E11.22 Type 2 diabetes mellitus with diabetic chronic kidney disease; N18.9 Chronic kidney disease, unspecified; I48.91 Unspecified atrial fibrillation; Z79.01 Long term (current) use of anticoagulants; E78.5 Hyperlipidemia, unspecified; G47.33 Obstructive sleep apnea (adult) (pediatric)
CPT/HCPCS: 10879

== ENCOUNTER → 2021-08-04 | Outpatient (CLI) | payer BC ==
[2021-05-01 12:38] LABS: HEMATOCRIT 31.2 % (37.0-47.0); HEMOGLOBIN 10.4 gm/dL (12.0-15.0); MCH 29.8 pg (26.0-34.0); MCHC 33.5 g/dL (28.0-37.0); RBC 3.5 mil/uL (4.20-5.00); RDW 14.3 % (10.5-14.5)
[2021-05-01 12:48] LABS: CALCIUM 9.6 mg/dL (8.5-10.1); CREATININE 3.7 mg/dL (0.6-1.0); POTASSIUM 4.4 mmol/L (3.5-5.1)
[~2021-08-04] MED LIST changes: +IMDUR 30 MG TAB30 M1 PO; +LOPRESSOR100 M1 PO; +PACERONE 200 M200 M1 PO; +VERAPAMIL HCL 880 M1 PO
== END ==
LOC: LAB 16:44 → CATH 16:44
PROVIDERS: ATTEND Internal Medicine Cardiovascular Disease
DX: Z01.812 Encounter for preprocedural laboratory examination (principal)